=== PATIENT | male | born 1980 | race Caucasian/White ===

== ENCOUNTER 2018-04-23 16:02 | Inpatient (IN) | payer OTHER, SELFPAY ==
[2018-04-23] VITALS (25 sets, daily range): BP systolic 171–248; BP diastolic 77–156; PULSE 79–100; RESP 13–21; TEMP 36.7–37.2; O2SAT 93–100; BMI 42.0; BMI 42.4
--- NOTE | 2018-04-23 16:28 | ED.VISSUMM ---
- ER Visit Summary Date of Service: 04/23/18 Chief Complaint: Acute on chronic hypertension History of Present Illness: The patient is a 38 M with hypertension and preglaucoma. Patient took himself off his blood pressure medication months ago. He was on lisinopril. He has had recent intermittent headaches. Due to recent visual changes in both eyes he was seen today by Dr. Zhou Minor of ophthalmology. Dr. Minor diagnosed him with a hypertensive retinopathy and extremely elevated blood pressure in his office and sent him in the ER for further evaluation for hypertensive emergency. Currently patient only has a mild headache. He denies any chest pain or shortness of breath. Physical Examination: Initial blood pressure 248/147 otherwise vital signs. H EENT exam bilateral dilated pupils from recent ophthalmologic exam. Funduscopic exam per ophthalmology is consistent with hypertensive retinopathy. No facial droop. Neck nontender. Lungs clear to auscultation. Heart regular rhythm no murmur. Abdomen soft and nontender. Moving all 4 extremities. Neurovascularly intact. No edema. Back normal. Neurologic exam awake with no focal motor deficits. Test Results: CBC normal. BMP normal with normal creatinine of 1.1. Troponin is slightly elevated 0.172. EKG sinus rhythm rate of 79 with no acute signs of AR or ischemia. Chest x-ray normal cardiac silhouette and mediastinum. CAT scan of the brain showed no acute intracranial bleed. Emergency Department Course and Treatment: Patient will be started on IV labetalol. Treatment Plan: Patient was started on nicardipine drip and admitted to PCU. I have already spoken to the hospitalist. Disposition: Admission for hypertensive emergency Impression: Acute hypertensive emergency Hypertensive retinopathy This note was generated with [employer] dictation software. It may contain incorrect words, spelling, and punctuation that were not noted in review of the chart prior to signing ED Disposition - Plan for ED Patient: Chief Complaint: Hypertension Referrals: Zhou Minor MD [STAFF PHYSICIAN] -
--- NOTE | 2018-04-23 16:31 | ED.DCSUM_ITS ---
- ER Visit Summary Date of Service: 04/23/18 Chief Complaint: Acute on chronic hypertension History of Present Illness: The patient is a 38 M with hypertension and preglaucoma. Patient took himself off his blood pressure medication months ago. He was on lisinopril. He has had recent intermittent headaches. Due to recent visual changes in both eyes he was seen today by Dr. Zhou Minor of ophthalmology. Dr. Minor diagnosed him with a hypertensive retinopathy and extremely elevated blood pressure in his office and sent him in the ER for further evaluation for hypertensive emergency. Currently patient only has a mild headache. He denies any chest pain or shortness of breath. Physical Examination: Initial blood pressure 248/147 otherwise vital signs. H EENT exam bilateral dilated pupils from recent ophthalmologic exam. Funduscopic exam per ophthalmology is consistent with hypertensive retinopathy. No facial droop. Neck nontender. Lungs clear to auscultation. Heart regular rhythm no murmur. Abdomen soft and nontender. Moving all 4 extremities. Neurovascularly intact. No edema. Back normal. Neurologic exam awake with no focal motor deficits. Test Results: CBC normal. BMP normal with normal creatinine of 1.1. Troponin is slightly elevated 0.172. EKG sinus rhythm rate of 79 with no acute signs of OR or ischemia. Chest x-ray normal cardiac silhouette and mediastinum. CAT scan of the brain showed no acute intracranial bleed. Emergency Department Course and Treatment: Patient will be started on IV labetalol. Treatment Plan: Patient was started on nicardipine drip and admitted to PCU. I have already spoken to the hospitalist. Disposition: Admission for hypertensive emergency Impression: Acute hypertensive emergency Hypertensive retinopathy This note was generated with [employer] dictation software. It may contain incorrect words, spelling, and punctuation that were not noted in review of the chart prior to signing ED Disposition - Plan for ED Patient: Chief Complaint: Hypertension Referrals: Zhou Minor MD [STAFF PHYSICIAN] -
[2018-04-23 16:47] LABS: Absolute Lymphocyte Count 2.06 X10^3/ul (0.83-4.51); Absolute Neutrophil Count 4.8 X10^3/uL (2.0-7.7); Basophil# 0.01 X10^3/uL; Basophil% 0.1 % (0-1); Eosinophil# 0.08 X10^3/uL; Eosinophils% 1.1 % (0-5); Hematocrit 45.4 % (40-54); Hemoglobin 15.4 g/dl (13.0-16.5); Lymphocyte # 2.06 X10^3/ul (4.0); Lymphocyte % 27.1 % (19-41); Mean Corp Hgb Conc 33.9 g/gl (32-36); Mean Corpuscular Hgb 29.3 pg (27.0-32.0); Mean Corpuscular Volume 86.3 fL (80-94); Mean Platelet Vol. 9.5 fl (6.2-12.0); Monocyte# 0.61 X10^3/uL; Neutrophil # 4.82 X10^3/uL (2.7-7.7); Neutrophil % 63.6 % (47-70); POSITIVE COUNT NO; POSITIVE DIFFERENTIAL NO; POSITIVE MORPHOLOGY NO; Platelet Count 268 K/mm3 (150-450); RBC Distribution Width CV 12.7 % (11.6-14.6); RBC Distribution Width SD 40.3 fl (35.1-43.9); Red Blood Count 5.26 M/mm3 (4.6-6.2); White Blood Count 7.6 K/mm3 (4.4-11.0)
[2018-04-23 17:04] LABS: Anion Gap 8 (5-15); BUN 20 mg/dL (7-18); BUN/Creat Ratio 18.2 RATIO (10-20); Calcium,Total 9.1 mg/dL (8.5-10.1); Chloride 107 mmol/L (98-107); EST Glomerular Filtration Rate 80 mL/min (>60); Est Glom Filt Rate - Afr Amer 97 mL/min (>60); Estimated Creatinine Clearance 112.88 ml/min; Glucose 89 mg/dL (74-106); Potassium 3.7 mmol/L (3.5-5.1); Sodium Level 140 mmol/L (136-145)
--- NOTE | 2018-04-23 17:16 | PCM.HP.STD ---
<Sujey Espinoza - Last Filed: 04/23/18 17:52> Problem List (1) Hypertension Status: Chronic (2) Hypertensive emergency Status: Acute (3) Hypertensive retinopathy Status: Chronic History of Present Illness Date of Admission: 04/23/18 Chief Complaint: Elevated blood pressure, blurred vision The patient is a 38 year old M who presents to the emergency room with elevated blood pressure and blurred vision. Patient states he has had intermittent headaches for a few weeks. The last few days he has noticed his vision has been blurry bilaterally. He visited ophthalmology today who diagnosed him with hypertensive retinopathy and his blood pressure was noted to be significantly elevated during appointment. He was referred to ER. Patient states he was placed on lisinopril in his early 30s. He states he took himself off of lisinopril years ago and has not been on blood pressure regimen since. He has not had routine PCP follow-up the last few years and has not had blood pressure checked. He denies chest pain, shortness of breath, lower extremity swelling. He denies loss of vision. Denies syncope/near syncope. He denies other chronic medical history. Past Medical History Past Medical History (Chronic Problems): Chronic Problems Hypertension (Chronic) Hypertensive retinopathy (Chronic) Allergies Penicillins [PCN] Adverse Reaction (Verified 04/23/18 16:04) Abd cramps/diarrhea Home Medications: Ambulatory Orders Medication Instructions Recorded Aspirin/Acetaminophen/Caffeine 2 tablet PO PRN PRN 04/23/18 [Excedrin Migraine Caplet] Surgical History: - - Right knee surgery ?2 Psychiatric History: No pertinent psych hx Lives: Spouse/ Significant Other Smoking Status: Former smoker Alcohol: None Drugs: None - *Family History Maternal History Items: No pertinent history Paternal History Items: No pertinent history Review of Systems Constitutional: Denies: Chills, Fever, Weight Change Eyes: Reports: Blurred vision HEENT: Denies: Head Aches, Sinus Congestion, Sinus Drainage Cardiovascular: Denies: Chest Pain, Chest Tightness, Edema, Light Headedness, Palpitations, Syncope Respiratory: Denies: Cough, Shortness of breath at rest, Sputum production Gastrointestinal: Denies: Abdominal Pain, Nausea, Vomiting Genitourinary: Denies: Dysuria Musculoskeletal: Denies: Joint Pain, Joint Tenderness Skin: Denies: Rash, Wounds Neurological: Reports: Headaches. Denies: Focal weakness, Numbness, Tingling Hematologic/ Lymphatic: Denies: Easy Bruising, Easy Bleeding VTE Information - Inpt Only VTE Present on Admission: No VTE Mechan Device Prophylaxis: None VTE Pharm Prophylaxis ordered?: Yes Patient Problems: Active and Suspected Problems Hypertensive emergency (Acute) - Physical Exam General: Alert, Oriented x3, Cooperative, No apparent distress HEENT: Atraumatic, PERRLA, EOMI, Normocephalic Neck: Supple, No JVD, Negative Carotid Bruits Lungs: Clear to auscultation, Normal air movement Cardiovascular: Regular rate, Regular Rhythm, Normal S1, Normal S2, No murmurs Abdomen: Bowel Sounds Present, Soft, Non Tender, Non-Distended Extremities: No clubbing, No cyanosis, No edema, Capillary Refill Less than 3 Seconds Skin: No rashes, No breakdown Musculoskeletal: No Tenderness to Palpation of Joints or Extremities Neurological: Cranial nerves II-XII grossly intact, Neuro grossly intact Psych/Mental Status: Normal Affect, Appropriate Vital Signs Temp Pulse Resp BP Pulse Ox 98.9 F 79 13 222/128 H 100 04/23/18 16:02 04/23/18 17:03 04/23/18 17:03 04/23/18 17:03 04/23/18 17:03 Oxygen Flow Rate (L/min) 2 Oxygen Delivery Method Nasal Cannula Weight: 345 lb Body Mass Index (BMI) 42.0 Laboratory Tests Past 24 Hrs 04/23/18 04/23/18 16:39 16:39 WBC 7.6 RBC 5.26 Hgb 15.4 Hct 45.4 MCV 86.3 MCH 29.3 MCHC 33.9 RDW 12.7 RDW Differential 40.3 Plt Count 268 MPV 9.5 Immature Gran % (Auto) 0.100 Neut % (Auto) 63.6 Lymph % (Auto) 27.1 [place] % (Auto) 8.0 Eos % (Auto) 1.1 Baso % (Auto) 0.1 Absolute Neuts (auto) 4.8 Absolute Lymphs (auto) 2.06 Total Counted Not Reportable Sodium 140 Potassium 3.7 Chloride 107 Carbon Dioxide 25.0 Anion Gap 8 BUN 20 H Creatinine 1.10 Estim Creat Clear Calc 112.88 Est GFR (MDRD) Af Amer 97 Est GFR (MDRD) Non-Af 80 BUN/Creatinine Ratio 18.2 Glucose 89 Calcium 9.1 Troponin I 0.172 H Assessment/Plan All Active Problems Hypertensive emergency (Acute) 1. Hypertensive Emergency on chronic hypertension- BP 248/147 on admission. Patient reportedly took himself off his blood pressure regimen years ago. Received labetalol 10 mg IV ?1 in ER. Previously on lisinopril for HTN. Cardizem gtt. Q2 hours BP checks. labetolol Q4H PRN for SBP >180. Brain CT pending. Obtain echo. Recommend kidney US if BP difficult to control. 2. Elevated troponin-suspect demand ischemia secondary #1. Trend enzymes. Patient denies chest pain. 3. Hypertensive retinopathy-continue outpatient follow-up with ophthalmology. 3. Obesity- Encouraged diet and lifestyle modifications. Nutrition consult. DVT prophylaxis-SCDs, ambulation. This patient was seen by MARIELENA Valdez under the supervision of Dr. Magallanes. <Sb Magallanes F - Last Filed: 04/23/18 19:33> History of Present Illness The patient is a 38 year old M [] Past Medical History Allergies Penicillins [PCN] Adverse Reaction (Verified 04/23/18 16:04) Abd cramps/diarrhea - Physical Exam Vital Signs Temp Pulse Resp BP Pulse Ox 98.9 F 79 16 228/125 H 95 04/23/18 16:02 04/23/18 18:41 04/23/18 18:41 04/23/18 18:41 04/23/18 18:41 Assessment/Plan Addendum: Dr. Magallanes I personally examined the patient and reviewed the chart. I agree with the above. 38 yo M [employer] with a h/o HTN and was on lisinopril which he stopped on his own. Went to see the lawyer probate for blurry vision and was found to be hypertensive with SBP >220 and hypertensive retinopathy and he was sent to the ER. Has headaches as well but CT was negative. General: Alert, Oriented x3, Cooperative, No apparent distress HEENT: Atraumatic, EOMI, Normocephalic Oral: Moist Mucosa Neck: Supple, No JVD Lungs: Clear to auscultation, Normal air movement, No rhonchi, No wheeze, No rales Cardiovascular: Regular rate, Regular Rhythm, Normal S1, Normal S2, No murmurs Abdomen: Soft, Non Tender, Non-Distended, No Hepato-splenomegaly Extremities: No edema, Capillary Refill Less than 3 Seconds Skin: No rashes, No breakdown Psych/Mental Status: Normal Affect, Appropriate 1. Hypertensive emergency/HTN/elevated troponin - Now with an elevated troponin and retinopathy - Will start on a nicardipine drip in the ICU - Will also start lisinopril/HCTZ in the am, Norvasc is also another adjunctive possibility as well as coreg - BMP and CBC in the am Diet: Cardiac DVT: Lovenox Code Visit Inpatient E&M: 32421 Init Hosp L3
[2018-04-24] VITALS (57 sets, daily range): BP systolic 139–187; BP diastolic 59–94; PULSE 69–94; RESP 13–23; TEMP 36.3–36.7; O2SAT 89–98
[2018-04-24] MEDS: Ondansetron 4 MG/2 ML Vial IV (03:42)
[2018-04-24] MEDS: 0.9% NaCl Peripheral Flush Adult/Peds IV (03:42)
[2018-04-24] MEDS: Acetaminophen 500 MG Tablet 1000 MG PO ×2 (03:51→12:25)
[2018-04-24 04:04] LABS: Absolute Lymphocyte Count 2.19 X10^3/ul (0.83-4.51); Absolute Neutrophil Count 6.6 X10^3/uL (2.0-7.7); Basophil# 0.01 X10^3/uL; Basophil% 0.1 % (0-1); Eosinophil# 0.04 X10^3/uL; Eosinophils% 0.4 % (0-5); Hematocrit 43.2 % (40-54); Lymphocyte # 2.19 X10^3/ul (4.0); Lymphocyte % 22.7 % (19-41); Mean Corp Hgb Conc 34.7 g/gl (32-36); Mean Corpuscular Hgb 29.6 pg (27.0-32.0); Mean Corpuscular Volume 85.4 fL (80-94); Mean Platelet Vol. 9.3 fl (6.2-12.0); Monocyte# 0.78 X10^3/uL; Monocyte% 8.1 % (0-10); Neutrophil # 6.61 X10^3/uL (2.7-7.7); Neutrophil % 68.5 % (47-70); Platelet Count 335 K/mm3 (150-450); RBC Distribution Width CV 12.7 % (11.6-14.6); RBC Distribution Width SD 38.8 fl (35.1-43.9); Red Blood Count 5.06 M/mm3 (4.6-6.2); White Blood Count 9.7 K/mm3 (4.4-11.0)
[2018-04-24 04:12] LABS: Anion Gap 11 (5-15); BUN 22 mg/dL (7-18); BUN/Creat Ratio 21.4 RATIO (10-20); Calcium,Total 8.9 mg/dL (8.5-10.1); Chloride 104 mmol/L (98-107); Creatinine, Serum 1.03 mg/dL (0.70-1.30); EST Glomerular Filtration Rate 86 mL/min (>60); Est Glom Filt Rate - Afr Amer 105 mL/min (>60); Estimated Creatinine Clearance 120.56 ml/min; Glucose 138 mg/dL (74-106); Potassium 3.5 mmol/L (3.5-5.1); Sodium Level 140 mmol/L (136-145)
[2018-04-24 04:29] LABS: POSITIVE COUNT NO; POSITIVE DIFFERENTIAL NO; POSITIVE MORPHOLOGY NO
[2018-04-24] MEDS: Ibuprofen 600 MG Tablet PO (05:52)
[2018-04-24] MEDS: Ketorolac 30 MG/ML Syringe IV (08:29)
--- NOTE | 2018-04-24 09:08 | PCM.PN.HOSP ---
Patient Problems: Active and Suspected Problems Hypertensive emergency (Acute) Subjective: Patient admitted yesterday for hypertensive emergency. He had blurry vision and yesterday diagnosed hypertensive retinopathy by gas pit worker yesterday and was sent to ER. Patient is diagnosed with hypotension and early 30s but not compliant with his antihypertensive medications. He also complained of temporal headache for last 4-5 days. I think he has obstructive sleep apnea and his complain of loud snoring. Currently he is on IV nicardipine and blood pressure is 177/75. Vitals/I&O's: Vital Signs Temp Pulse Resp BP Pulse Ox 98.1 F 92 19 H 180/78 H 97 04/24/18 00:00 04/24/18 09:00 04/24/18 09:00 04/24/18 09:00 04/24/18 09:00 Oxygen Delivery Method Room Air Weight: 348 lb 1.758 oz Body Mass Index (BMI) 42.4 Intake and Output for Last 24 Hours 04/22/18 04/23/18 04/24/18 23:59 23:59 23:59 Intake Total 650 / 650 1325 / 1325 Output Total 1125 / 1125 300 / 300 Balance -475 / -475 1025 / 1025 General: Alert, Oriented x3, Cooperative HEENT: Atraumatic, PERRLA, EOMI, Normocephalic Neck: Supple, No JVD, Negative Carotid Bruits Lungs: Clear to auscultation, No rhonchi, No wheeze, No rales, Diminished Cardiovascular: Regular rate, Regular Rhythm, Normal S1, Normal S2, No murmurs Abdomen: Bowel Sounds Present, Soft, Non Tender Extremities: Capillary Refill Less than 3 Seconds, Edema Skin: No rashes, No breakdown Musculoskeletal: No Tenderness to Palpation of Joints or Extremities Neurological: Cranial nerves II-XII grossly intact Psych/Mental Status: Normal Affect, Appropriate Laboratory Results 04/23/18 19:35: Troponin I 0.173 H 04/23/18 22:20: Troponin I 0.165 H 04/24/18 03:50: WBC 9.7, RBC 5.06, Hgb 15.0, Hct 43.2, MCV 85.4, MCH 29.6, MCHC 34.7, RDW 12.7, RDW Differential 38.8, Plt Count 335, MPV 9.3, Immature Gran % (Auto) 0.200, Neut % (Auto) 68.5, Lymph % (Auto) 22.7, [place] % (Auto) 8.1, Eos % (Auto) 0.4, Baso % (Auto) 0.1, Absolute Neuts (auto) 6.6, Absolute Lymphs (auto) 2.19, Total Counted Not Reportable 04/24/18 03:50: Sodium 140, Potassium 3.5, Chloride 104, Carbon Dioxide 25.0, Anion Gap 11, BUN 22 H, Creatinine 1.03, Estim Creat Clear Calc 120.56, Est GFR (MDRD) Af Amer 105, Est GFR (MDRD) Non-Af 86, BUN/Creatinine Ratio 21.4 H, Glucose 138 H, Calcium 8.9 Current Medications Acetaminophen (Tylenol) 1,000 mg PO Q8H PRN PRN PRN Reason: PAIN Last Admin: 04/24/18 03:51 Dose: 1,000 mg Enoxaparin Sodium (Lovenox) 40 mg SC DAILY@1000 [facility] Hydrochlorothiazide (Hctz) 25 mg PO DAILY [facility] Sodium Chloride () 250 mls @ 15 mls/hr IV .[id number] PRN PRN Reason: SALINE FLUSH Nicardipine HCl 25 mg/ Sodium (Chloride) 250 mls @ 50 mls/hr IV .Q5H [facility]; 5 MG/HR PRN Reason: Protocol Last Admin: 04/24/18 08:54 Dose: 50 mls/hr Ketorolac Tromethamine (Toradol) 15 mg IV Q6H PRN PRN PRN Reason: HEADACHE Stop: 04/29/18 14:01 Lisinopril (Zestril) 20 mg PO DAILY [facility] Magnesium Hydroxide (Milk Of Magnesia) 30 ml PO DAILY PRN PRN Reason: Constipation Ondansetron HCl (Zofran) 4 mg IV Q8H PRN PRN PRN Reason: NAUSEA Last Admin: 04/24/18 03:42 Dose: 4 mg Sodium Chloride () 5 - 30 ml IV UD PRN PRN Reason: SALINE FLUSH Last Admin: 04/24/18 03:42 Dose: 10 ml Medical Necessity - Tobacco Use Smoking Status: Former smoker Tobacco Use: Cigarettes Assessment/Plan All Active Problems Hypertensive emergency (Acute) This 38-year-old gentleman was admitted in ICU for hypertensive emergency. He had blurry vision and yesterday diagnosed hypertensive retinopathy by gas pit worker yesterday and was sent to ER. Patient is diagnosed with hypotension and early 30s but not compliant with his antihypertensive medications. He also complained of temporal headache for last 4-5 days. I think he has obstructive sleep apnea and his complain of loud snoring. Currently he is on IV nicardipine and blood pressure is 177/75. 1. Hypertensive Emergency on chronic hypertension- BP 248/147 on admission. Received labetalol 10 mg IV ?1 in ER. Previously on lisinopril for HTN. labetolol Q4H PRN for SBP >180. Titrate up nicardipine drip to keep blood pressure systolic 150s for next hours. On HCTZ, lisinopril and metoprolol Brain CT pending. Obtain echo. Recommend kidney US if BP difficult to control. 2. Elevated troponin-suspect demand ischemia secondary #1. Troponins are elevated 0.173, 0.165. We will do 1 more troponin. 3. Hypertensive retinopathy-continue outpatient follow-up with ophthalmology. 3. Obesity- Encouraged diet and lifestyle modifications. Nutrition consult. DVT prophylaxis-SCDs, Lovenox Code Visit Inpatient E&M: 14687 Subs Hosp L3
[2018-04-24] MEDS: Lisinopril 20 MG Tablet PO ×2 (09:09→21:07)
[2018-04-24] MEDS: hydroCHLOROthiazide 25 MG Tablet PO (09:09)
[2018-04-24] MEDS: Enoxaparin 40 MG/0.4 ML Syringe SC (09:10)
[2018-04-24 10:15] LABS: BNP,B-Type NATRIURETIC PEPTIDE 53.4 pg/mL (0-100)
[2018-04-24] MEDS: Metoprolol Tartrate 25 MG Tablet PO ×2 (10:55→21:06)
--- NOTE | 2018-04-24 10:56 | CASEMGMT ---
See assessment. W spoke w/pt and in room. Pt is independent, lives home w/ and two daughters, ages 3 and 6. No homegoing needs anticipated. SW gave pt a list of PCP's as pt does not have a PCP at present. Pt plans to follow up w/getting in to see a PCP. No other needs are anticipated. JOON Caraballo, DRY END TESTER
[2018-04-24] MEDS: hydrALAZINE 50 MG Tablet PO ×2 (14:16→21:06)
[2018-04-24] MEDS: Ketorolac 15 MG/ML Vial IV (14:16)
[2018-04-24] MEDS: Atorvastatin Calcium 40 MG Tablet PO (21:06)
[2018-04-25] VITALS (60 sets, daily range): BP systolic 139–197; BP diastolic 68–114; PULSE 59–86; RESP 11–20; TEMP 36.8–37.1; O2SAT 90–97
--- NOTE | 2018-04-25 01:12 | CPS ---
pt does not wear cpap at home. Pt will follow up wit a request for a sleep study from PCP.
[2018-04-25 04:33] LABS: Absolute Neutrophil Count 4.6 X10^3/uL (2.0-7.7); Basophil# 0.01 X10^3/uL; Basophil% 0.1 % (0-1); Eosinophil# 0.09 X10^3/uL; Eosinophils% 1.1 % (0-5); Hematocrit 43.8 % (40-54); Hemoglobin 14.8 g/dl (13.0-16.5); Lymphocyte % 26.8 % (19-41); Mean Corp Hgb Conc 33.8 g/gl (32-36); Mean Corpuscular Hgb 29.5 pg (27.0-32.0); Mean Corpuscular Volume 87.4 fL (80-94); Mean Platelet Vol. 9.5 fl (6.2-12.0); Monocyte% 12.7 % (0-10); Neutrophil # 4.63 X10^3/uL (2.7-7.7); Platelet Count 296 K/mm3 (150-450); RBC Distribution Width CV 13.1 % (11.6-14.6); RBC Distribution Width SD 41.8 fl (35.1-43.9); Red Blood Count 5.01 M/mm3 (4.6-6.2); White Blood Count 7.9 K/mm3 (4.4-11.0)
[2018-04-25 04:34] LABS: Anion Gap 9 (5-15); BUN 17 mg/dL (7-18); BUN/Creat Ratio 18.5 RATIO (10-20); Calcium,Total 8.7 mg/dL (8.5-10.1); Chloride 106 mmol/L (98-107); Cholesterol 274 mg/dL (200); Creatinine, Serum 0.92 mg/dL (0.70-1.30); EST Glomerular Filtration Rate 98 mL/min (>60); Est Glom Filt Rate - Afr Amer 119 mL/min (>60); Estimated Creatinine Clearance 134.97 ml/min; Glucose 99 mg/dL (74-106); High Density Lipoprotein 40 mg/dL; POSITIVE COUNT NO; POSITIVE DIFFERENTIAL NO; POSITIVE MORPHOLOGY NO; Potassium 4.2 mmol/L (3.5-5.1); Sodium Level 141 mmol/L (136-145); Triglycerides 144 mg/dL; Very Low Density Lipoprotein 29 mg/dL (5-40)
[2018-04-25] MEDS: hydrALAZINE 50 MG Tablet PO ×3 (05:34→21:00)
[2018-04-25] MEDS: Ketorolac 15 MG/ML Vial IV (07:50)
[2018-04-25] MEDS: Lisinopril 20 MG Tablet PO ×2 (07:51→09:29)
[2018-04-25] MEDS: Metoprolol Tartrate 25 MG Tablet PO (07:51)
[2018-04-25] MEDS: hydroCHLOROthiazide 25 MG Tablet PO (07:52)
--- NOTE | 2018-04-25 08:13 | EKG12_ITS ---
Test Reason : HTN Blood Pressure : / mmHG Vent. Rate : 069 BPM Atrial Rate : 069 BPM P-R Int : 142 ms QRS Dur : 104 ms QT Int : 438 ms P-R-T Axes : 037 006 121 degrees QTc Int : 469 ms Normal sinus rhythm T wave abnormality, consider lateral ischemia Prolonged QT Confirmed by NANCY PRADO, SHAGGY ([id number]), manuscript editor MIGUEL ANGEL JAMA ([id number]) on 05/01/2018 2:10:23 PM Referred By: VERONICA Confirmed By:SHAGGY CRUZ MD
--- NOTE | 2018-04-25 09:04 | PCM.PN.HOSP ---
Patient Problems: Active and Suspected Problems Hypertensive emergency (Acute) Subjective: Blood pressure was 151-160 around 3:00 in the morning and after that nicardipine drip was tapered off. After 2-3 hours, BP went up 197/100 at 7:22; morning dose of lisinopril, HCTZ and metoprolol was given but is still 185/97 at 7:45 AM. Nicardipine drip was started again. Discussed with industrial hygiene engineer Dr. Virgen and went to his medications, EKG and troponins. He denies chest pain, shortness of breath or tachypnea. He also has headache for which Toradol was given. Vitals/I&O's: Vital Signs Temp Pulse Resp BP Pulse Ox 98.2 F 70 15 173/110 H 94 04/25/18 00:00 04/25/18 08:30 04/25/18 08:30 04/25/18 08:30 04/25/18 08:30 Oxygen Delivery Method Room Air Weight: 346 lb 5.539 oz Body Mass Index (BMI) 42.4 Intake and Output for Last 24 Hours 04/23/18 04/24/18 04/25/18 23:59 23:59 23:59 Intake Total 650 / 650 4064 / 4064 335 / 335 Output Total 1125 / 1125 3050 / 3050 700 / 700 Balance -475 / -475 1014 / 1014 -365 / -365 General: Alert, Oriented x3, Cooperative HEENT: Atraumatic, PERRLA, EOMI, Normocephalic Neck: Supple, No JVD, Negative Carotid Bruits Lungs: Clear to auscultation, Normal air movement, No rhonchi, No wheeze, No rales Cardiovascular: Regular rate, Regular Rhythm, Normal S1, Normal S2, No murmurs, - - Sustained apical impulse Abdomen: Bowel Sounds Present, Soft, Non Tender, Non-Distended Extremities: No edema, Capillary Refill Less than 3 Seconds Skin: No rashes, No breakdown Musculoskeletal: No Tenderness to Palpation of Joints or Extremities Neurological: Cranial nerves II-XII grossly intact Psych/Mental Status: Normal Affect, Appropriate Laboratory Results 04/24/18 03:50: Troponin I 0.231 H 04/24/18 03:50: B-Natriuretic Peptide 53.4 04/25/18 04:10: WBC 7.9, RBC 5.01, Hgb 14.8, Hct 43.8, MCV 87.4, MCH 29.5, MCHC 33.8, RDW 13.1, RDW Differential 41.8, Plt Count 296, MPV 9.5, Immature Gran % (Auto) 0.300, Neut % (Auto) 59.0, Lymph % (Auto) 26.8, [place] % (Auto) 12.7 H, Eos % (Auto) 1.1, Baso % (Auto) 0.1, Absolute Neuts (auto) 4.6, Absolute Lymphs (auto) 2.10, Total Counted Not Reportable 04/25/18 04:10: Sodium 141, Potassium 4.2, Chloride 106, Carbon Dioxide 26.0, Anion Gap 9, BUN 17, Creatinine 0.92, Estim Creat Clear Calc 134.97, Est GFR (MDRD) Af Amer 119, Est GFR (MDRD) Non-Af 98, BUN/Creatinine Ratio 18.5, Glucose 99, Calcium 8.7, Triglycerides 144, Cholesterol 274 H, LDL Cholesterol 205 H, VLDL Cholesterol 29, HDL Cholesterol 40 Current Medications Acetaminophen (Tylenol) 1,000 mg PO Q8H PRN PRN PRN Reason: PAIN Last Admin: 04/24/18 12:25 Dose: 1,000 mg Atorvastatin Calcium (Lipitor) 80 mg PO QHS [facility] Carvedilol (Coreg) 12.5 mg PO BID [facility] Enoxaparin Sodium (Lovenox) 40 mg SC DAILY@1000 [facility] Last Admin: 04/24/18 09:10 Dose: 40 mg Hydralazine HCl (Apresoline) 50 mg PO TID [facility] Last Admin: 04/25/18 05:34 Dose: 50 mg Hydrochlorothiazide (Hctz) 25 mg PO DAILY [facility] Last Admin: 04/25/18 07:52 Dose: 25 mg Sodium Chloride () 250 mls @ 15 mls/hr IV .[id number] PRN PRN Reason: SALINE FLUSH Nicardipine HCl 25 mg/ Sodium (Chloride) 250 mls @ 100 mls/hr IV .Q2H30M [facility]; 10 MG/HR PRN Reason: Protocol Last Admin: 04/25/18 05:33 Dose: Not Given Ketorolac Tromethamine (Toradol) 15 mg IV Q6H PRN PRN PRN Reason: HEADACHE Stop: 04/29/18 14:01 Last Admin: 04/25/18 07:50 Dose: 15 mg Lisinopril (Zestril) 20 mg PO X1 ONE Stop: 04/25/18 09:00 Losartan Potassium (Cozaar) 100 mg PO DAILY [facility] Magnesium Hydroxide (Milk Of Magnesia) 30 ml PO DAILY PRN PRN Reason: Constipation Ondansetron HCl (Zofran) 4 mg IV Q6H PRN PRN PRN Reason: NAUSEA Sodium Chloride () 5 - 30 ml IV UD PRN PRN Reason: SALINE FLUSH Last Admin: 04/24/18 03:42 Dose: 10 ml Medical Necessity - Tobacco Use Smoking Status: Former smoker Tobacco Use: Cigarettes Assessment/Plan All Active Problems Hypertensive emergency (Acute) This 38-year-old gentleman was admitted in ICU for hypertensive emergency. He had blurry vision and yesterday diagnosed hypertensive retinopathy by certified fraud examiner yesterday and was sent to ER. Patient is diagnosed with hypotension and early 30s but not compliant with his antihypertensive medications. He also complained of temporal headache for last 4-5 days. I think he has obstructive sleep apnea and his complain of loud snoring. Currently he is on IV nicardipine and blood pressure is 177/75. 1. Hypertensive Emergency on chronic hypertension- BP 248/147 on admission. Received labetalol 10 mg IV ?1 in ER. Previously on lisinopril for HTN. labetolol Q4H PRN for SBP >180. Titrate up nicardipine drip to keep blood pressure systolic 150s for next hours. Blood pressure was 151-160 around 3:00 a.m. on 04/25 and after that nicardipine drip was tapered off. After 2-3 hours, BP went up 197/100 at 7:22; morning dose of lisinopril, HCTZ and metoprolol was given but is still 185/97 at 7:45 AM. Nicardipine drip was started again. Discussed with industrial hygiene engineer Dr. Virgen and went to his medications, EKG and troponins. He advised change lisinopril to Cozaar 100 mg, metoprolol to Coreg 12.5 mg twice daily and continue HCTZ and nicardipine drip. Once blood pressure is controlled around 150s, can taper off nicardipine drip and start amlodipine 10 mg. Repeat EKG shows normal sinus rhythm with T inversion in lead I, aVL, V5, V6 suggestive of LVH with repolarization abnormality. Dr. Virgen also suggested 24 hours urinary metanephrine and catecholamine test. Serum TSH, cortisol and renal aldosterone activity ordered for tomorrow morning. Renal artery ultrasound also ordered to look for secondary hypertension. 2. Elevated troponin-suspect demand ischemia secondary #1. Troponins are elevated 0.173, 0.165 and 0.231 suggestive of increased left ventricular distress from hypertensive emergency. Discussed with Dr. Virgen notes repeating troponin further. 3. Hypertensive retinopathy-continue outpatient follow-up with ophthalmology. 4. Obesity- Encouraged diet and lifestyle modifications. Nutrition consult. DVT prophylaxis-SCDs, Lovenox Code Visit Inpatient E&M: 28223 Subs Hosp L3
[2018-04-25] MEDS: Enoxaparin 40 MG/0.4 ML Syringe SC (09:32)
[2018-04-25] MEDS: Acetaminophen 500 MG Tablet 1000 MG PO ×2 (09:42→23:54)
--- NOTE | 2018-04-25 14:39 | PCM.CON.CC ---
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 Patient reportedly had been having intermittent headaches for weeks that were described as sharp stabbing pains of the [place]eter[place] that radiated to the occiput. No photophobia or phonophobia was reported. No nausea or vomiting was noted. Patient did report improvement following Excedrin Migraine. On arrival to the emergency room, patient was noted to have a blood pressure of 248/147 without focal neurologic deficits. Workup otherwise was unremarkable. Patient was transferred to the intensive care unit and placed on a nicardipine drip. Patient has been initiated on multiple p.o. medications, but has not been able to come off of nicardipine drip, so a intensive care consult was obtained. Patient has taken hydrochlorothiazide, lisinopril and metoprolol. Echocardiogram was significant for an EF of 75% without reported LVH. No significant pulmonary hypertension was reported. Patient had indeterminate troponins, but no intervention. Patient reports he was on lisinopril in the past, but this was discontinued by himself. Patient admits that he does not follow up routinely with a primary care physician and estimates last time he was seen was approximately 5 years ago for a preemployment evaluation. Patient does admit that he is tired through the day, but states he works a lot of hours. Patient does have witnessed apneas and snoring at night. Patient feels tired to the point that he can fall asleep while watching TV or reading the paper. Patient has been followed for some time for increased intraocular pressure, but is never been placed on drops for evaluation. Patient does report that he had an uncle that in his 30s of unknown causes. Patient also had a grandfather that had a massive [place] that had issues with increased blood pressure. Past Medical History Past Medical History (Chronic Problems): Chronic Problems Hypertension (Chronic) Hypertensive retinopathy (Chronic) Allergies Penicillins [PCN] Adverse Reaction (Verified 04/23/18 16:04) Abd cramps/diarrhea Home Medications: Ambulatory Orders Medication Instructions Recorded Aspirin/Acetaminophen/Caffeine 2 tablet PO PRN PRN 04/23/18 [Excedrin Migraine Caplet] Surgical History: - - Right knee surgery ?2 Psychiatric History: No pertinent psych hx Lives: Spouse/ Significant Other Smoking Status: Former smoker Tobacco Use: Cigarettes Alcohol: None Drugs: None - *Family History Maternal History Items: No pertinent history Paternal History Items: No pertinent history Review of Systems Comment: See HPI, otherwise negative ?10 systems. Patient Problems: Active and Suspected Problems Hypertensive emergency (Acute) Objective: All imaging was personally reviewed. Echocardiogram was described in the HPI. CT scan of the head did show a possible empty sella. Renal Dopplers have been completed, but formal results are not available. - Physical Exam General: Alert, Oriented x3, Cooperative, No apparent distress, Well developed, Well nourished, - - Morbidly obese. Speaking in full sentences. HEENT: Atraumatic, PERRLA, EOMI, Normocephalic, - - No scleral icterus or injection noted. Oral: Moist Mucosa, No Gingival or Mucosal Lesions/ Ulcerations Neck: Supple, No JVD, No Nodes, Trachea Midline Lungs: Clear to auscultation, Normal air movement, No rhonchi, No wheeze, No rales Cardiovascular: Regular rate, Regular Rhythm, Normal S1, Normal S2, No murmurs, No rub noted, No Gallop Abdomen: Bowel Sounds Present, Soft, Non Tender, Non-Distended, No Hepato-splenomegaly, Obese Extremities: No clubbing, No cyanosis, Edema - Trace lower extremity Skin: No rashes, No breakdown Musculoskeletal: No Tenderness to Palpation of Joints or Extremities Lymphatic: No Cervical, Supraclavicular, or Inguinal Adenopathy Neurological: Cranial nerves II-XII grossly intact, Neuro grossly intact, Motor Exam 5/5 strength throughout Psych/Mental Status: Alert and oriented to time, place, person, mood and affect Vital Signs Temp Pulse Resp BP Pulse Ox 37.1 C 75 18 167/96 H 97 04/25/18 12:38 04/25/18 14:00 04/25/18 14:00 04/25/18 14:00 04/25/18 14:00 Oxygen Delivery Method Room Air Weight: 157.1 kg Body Mass Index (BMI) 42.4 Intake and Output for Last 24 Hours 04/23/18 04/24/18 04/25/18 23:59 23:59 23:59 Intake Total 650 / 650 4064 / 4064 1054 / 1054 Output Total 1125 / 1125 3050 / 3050 1700 / 1700 Balance -475 / -475 1014 / 1014 -646 / -646 Laboratory Tests Past 24 Hrs 04/25/18 04/25/18 04:10 04:10 WBC 7.9 RBC 5.01 Hgb 14.8 Hct 43.8 MCV 87.4 MCH 29.5 MCHC 33.8 RDW 13.1 RDW Differential 41.8 Plt Count 296 MPV 9.5 Immature Gran % (Auto) 0.300 Neut % (Auto) 59.0 Lymph % (Auto) 26.8 [place] % (Auto) 12.7 H Eos % (Auto) 1.1 Baso % (Auto) 0.1 Absolute Neuts (auto) 4.6 Absolute Lymphs (auto) 2.10 Total Counted Not Reportable Sodium 141 Potassium 4.2 Chloride 106 Carbon Dioxide 26.0 Anion Gap 9 BUN 17 Creatinine 0.92 Estim Creat Clear Calc 134.97 Est GFR (MDRD) Af Amer 119 Est GFR (MDRD) Non-Af 98 BUN/Creatinine Ratio 18.5 Glucose 99 Calcium 8.7 Triglycerides 144 Cholesterol 274 H LDL Cholesterol 205 H VLDL Cholesterol 29 HDL Cholesterol 40 Clinical Impression(s) from Imaging Studies Chest X-Ray 04/23/18 16:19 IMPRESSION: No acute thoracic pathology. Electronically Signed: Alexis Nunes at 16:59 EDT Tel , Service support , Brain CT 04/23/18 17:33 IMPRESSION: Empty sella deformity is observed of uncertain clinical significance although may be associated with pseudotumor cerebri. Clinical correlation recommended. No evidence for obstructive hydrocephalus mass or acute bleed. MRI may be useful for further assessment if clinically warranted Electronically Signed: Zhou Khoury MD at 18:07 EDT , Service support , Assessment/Plan Active and Suspected Problems Hypertensive emergency (Acute) RECOMMENDATIONS: 1. Discontinue losartan, reinitiate lisinopril 2. Increase Coreg therapy 3. Labetalol IV as needed 4. Wean nicardipine as tolerated 5. Await renal artery Dopplers 6. Titrate to systolic blood pressure 170-180 7. Outpatient polysomnogram 8. Add Norvasc therapy IMPRESSIONS: 1. Hypertensive emergency secondary to hypertensive retinopathy Patient has remained on nicardipine drip intermittently since admission. We will continue with RIANA inhibitor. Transition to Coreg therapy and maximum dosages. IV labetalol for now. Wean nicardipine drip as tolerated. Patient does have renal Doppler ultrasounds pending. Patient may require outpatient secondary hypertension workup. Patient likely has a significant amount of autoregulation at this time and should not be dropped below 170-180 chronically on blood pressures systolically. Cannot exclude the need for an MRI as an outpatient for evaluation of possible hypothalamic issues, but patient does not have concomitant issues such as hypothyroidism or gonadotropin issues. 2. Morbid obesity/elevated troponin Complicates care, management, recovery and prognosis. Clinical suspicion for elevated troponin secondary to perfusion mismatch. No LVH was noted on echocardiogram. Encourage weight loss. Patient would benefit from outpatient polysomnogram. Code Visit Inpatient E&M: 89219 Init Hosp L3
--- NOTE | 2018-04-25 14:45 | CON.PCM_ITS ---
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 Patient reportedly had been having intermittent headaches for weeks that were described as sharp stabbing pains of the zoroastrianism that radiated to the occiput. No photophobia or phonophobia was reported. No nausea or vomiting was noted. Patient did report improvement following Excedrin Migraine. On arrival to the emergency room, patient was noted to have a blood pressure of 248/147 without focal neurologic deficits. Workup otherwise was unremarkable. Patient was transferred to the intensive care unit and placed on a nicardipine drip. Patient has been initiated on multiple p.o. medications, but has not been able to come off of nicardipine drip, so a intensive care consult was obtained. Patient has taken hydrochlorothiazide, lisinopril and metoprolol. Echocardiogram was significant for an EF of 75% without reported LVH. No significant pulmonary hypertension was reported. Patient had indeterminate troponins, but no intervention. Patient reports he was on lisinopril in the past, but this was discontinued by himself. Patient admits that he does not follow up routinely with a primary care physician and estimates last time he was seen was approximately 5 years ago for a preemployment evaluation. Patient does admit that he is tired through the day, but states he works a lot of hours. Patient does have witnessed apneas and snoring at night. Patient feels tired to the point that he can fall asleep while watching TV or reading the paper. Patient has been followed for some time for increased intraocular pressure, but is never been placed on drops for evaluation. Patient does report that he had an uncle that in his 30s of unknown causes. Patient also had a grandfather that had a massive [place] that had issues with increased blood pressure. Past Medical History Past Medical History (Chronic Problems): Chronic Problems Hypertension (Chronic) Hypertensive retinopathy (Chronic) Allergies Penicillins [PCN] Adverse Reaction (Verified 04/23/18 16:04) Abd cramps/diarrhea Home Medications: Ambulatory Orders Medication Instructions Recorded Aspirin/Acetaminophen/Caffeine 2 tablet PO PRN PRN 04/23/18 [Excedrin Migraine Caplet] Surgical History: - - Right knee surgery ?2 Psychiatric History: No pertinent psych hx Lives: Spouse/ Significant Other Smoking Status: Former smoker Tobacco Use: Cigarettes Alcohol: None Drugs: None - *Family History Maternal History Items: No pertinent history Paternal History Items: No pertinent history Review of Systems Comment: See HPI, otherwise negative ?10 systems. Patient Problems: Active and Suspected Problems Hypertensive emergency (Acute) Objective: All imaging was personally reviewed. Echocardiogram was described in the HPI. CT scan of the head did show a possible empty sella. Renal Dopplers have been completed, but formal results are not available. - Physical Exam General: Alert, Oriented x3, Cooperative, No apparent distress, Well developed, Well nourished, - - Morbidly obese. Speaking in full sentences. HEENT: Atraumatic, PERRLA, EOMI, Normocephalic, - - No scleral icterus or injection noted. Oral: Moist Mucosa, No Gingival or Mucosal Lesions/ Ulcerations Neck: Supple, No JVD, No Nodes, Trachea Midline Lungs: Clear to auscultation, Normal air movement, No rhonchi, No wheeze, No rales Cardiovascular: Regular rate, Regular Rhythm, Normal S1, Normal S2, No murmurs, No rub noted, No Gallop Abdomen: Bowel Sounds Present, Soft, Non Tender, Non-Distended, No Hepato- splenomegaly, Obese Extremities: No clubbing, No cyanosis, Edema - Trace lower extremity Skin: No rashes, No breakdown Musculoskeletal: No Tenderness to Palpation of Joints or Extremities Lymphatic: No Cervical, Supraclavicular, or Inguinal Adenopathy Neurological: Cranial nerves II-XII grossly intact, Neuro grossly intact, Motor Exam 5/5 strength throughout Psych/Mental Status: Alert and oriented to time, place, person, mood and affect Vital Signs Temp Pulse Resp BP Pulse Ox 37.1 C 75 18 167/96 H 97 04/25/18 12:38 04/25/18 14:00 04/25/18 14:00 04/25/18 14:00 04/25/18 14:00 Oxygen Delivery Method Room Air Weight: 157.1 kg Body Mass Index (BMI) 42.4 Intake and Output for Last 24 Hours 04/23/18 04/24/18 04/25/18 23:59 23:59 23:59 Intake Total 650 / 650 4064 / 4064 1054 / 1054 Output Total 1125 / 1125 3050 / 3050 1700 / 1700 Balance -475 / -475 1014 / 1014 -646 / -646 Laboratory Tests Past 24 Hrs 04/25/18 04/25/18 04:10 04:10 WBC 7.9 RBC 5.01 Hgb 14.8 Hct 43.8 MCV 87.4 MCH 29.5 MCHC 33.8 RDW 13.1 RDW Differential 41.8 Plt Count 296 MPV 9.5 Immature Gran % (Auto) 0.300 Neut % (Auto) 59.0 Lymph % (Auto) 26.8 [place] % (Auto) 12.7 H Eos % (Auto) 1.1 Baso % (Auto) 0.1 Absolute Neuts (auto) 4.6 Absolute Lymphs (auto) 2.10 Total Counted Not Reportable Sodium 141 Potassium 4.2 Chloride 106 Carbon Dioxide 26.0 Anion Gap 9 BUN 17 Creatinine 0.92 Estim Creat Clear Calc 134.97 Est GFR (MDRD) Af Amer 119 Est GFR (MDRD) Non-Af 98 BUN/Creatinine Ratio 18.5 Glucose 99 Calcium 8.7 Triglycerides 144 Cholesterol 274 H LDL Cholesterol 205 H VLDL Cholesterol 29 HDL Cholesterol 40 Clinical Impression(s) from Imaging Studies Chest X-Ray 04/23/18 16:19 IMPRESSION: No acute thoracic pathology. Electronically Signed: Alexis Nunes at 16:59 EDT Tel , Service support , Brain CT 04/23/18 17:33 IMPRESSION: Empty sella deformity is observed of uncertain clinical significance although may be associated with pseudotumor cerebri. Clinical correlation recommended. No evidence for obstructive hydrocephalus mass or acute bleed. MRI may be useful for further assessment if clinically warranted Electronically Signed: Zhou Khoury MD at 18:07 EDT , Service support , Assessment/Plan Active and Suspected Problems Hypertensive emergency (Acute) RECOMMENDATIONS: 1. Discontinue losartan, reinitiate lisinopril 2. Increase Coreg therapy 3. Labetalol IV as needed 4. Wean nicardipine as tolerated 5. Await renal artery Dopplers 6. Titrate to systolic blood pressure 170-180 7. Outpatient polysomnogram 8. Add Norvasc therapy IMPRESSIONS: 1. Hypertensive emergency secondary to hypertensive retinopathy Patient has remained on nicardipine drip intermittently since admission. We will continue with RIANA inhibitor. Transition to Coreg therapy and maximum dosages. IV labetalol for now. Wean nicardipine drip as tolerated. Patient does have renal Doppler ultrasounds pending. Patient may require outpatient secondary hypertension workup. Patient likely has a significant amount of autoregulation at this time and should not be dropped below 170-180 chronically on blood pressures systolically. Cannot exclude the need for an MRI as an outpatient for evaluation of possible hypothalamic issues, but patient does not have concomitant issues such as hypothyroidism or gonadotropin issues. 2. Morbid obesity/elevated troponin Complicates care, management, recovery and prognosis. Clinical suspicion for elevated troponin secondary to perfusion mismatch. No LVH was noted on echocardiogram. Encourage weight loss. Patient would benefit from outpatient polysomnogram. Code Visit Inpatient E&M: 39360 Init Hosp L3
[2018-04-25] MEDS: amLODIPine 10 MG Tablet PO (15:18)
[2018-04-25] MEDS: Atorvastatin Calcium 80 MG Tablet PO (21:01)
[2018-04-25] MEDS: Carvedilol 25 MG Tablet PO (21:02)
[2018-04-26] VITALS (23 sets, daily range): BP systolic 134–201; BP diastolic 60–120; PULSE 52–78; RESP 10–20; TEMP 36.8–37; O2SAT 92–99
[2018-04-26] MEDS: 0.9% NaCl Peripheral Flush Adult/Peds IV ×3 (03:17→19:43)
[2018-04-26] MEDS: Ketorolac 15 MG/ML Vial IV ×2 (03:17→17:57)
[2018-04-26 04:39] LABS: ALB/GLOB Ratio 1.1 RATIO (0.9-2.4); AST(SGOT) 22 U/L (15-37); Alanine Aminotransfer ALT/SGPT 44 U/L (16-61); Albumin, Serum 3.7 g/dL (3.2-5.0); Alkaline Phosphatase 84 U/L (45-117); Anion Gap 10 (5-15); BUN 21 mg/dL (7-18); BUN/Creat Ratio 17.1 RATIO (10-20); Calcium,Total 8.7 mg/dL (8.5-10.1); Chloride 104 mmol/L (98-107); Creatinine, Serum 1.23 mg/dL (0.70-1.30); EST Glomerular Filtration Rate 70 mL/min (>60); Est Glom Filt Rate - Afr Amer 85 mL/min (>60); Estimated Creatinine Clearance 100.95 ml/min; Globulin 3.4 g/dL (2.2-4.2); Glucose 100 mg/dL (74-106); Magnesium 1.9 mg/dL (1.6-2.6); Protein, Total 7.1 g/dL (6.4-8.2); Sodium Level 139 mmol/L (136-145); Thyroid Stim Hormone (TSH) 1.97 uIU/mL (0.358-3.74)
[2018-04-26] MEDS: hydrALAZINE 50 MG Tablet PO ×2 (05:02→19:43)
--- NOTE | 2018-04-26 07:28 | PCM.PN.INT ---
Subjective: Patient did well overnight. Patient denies any nausea or vomiting, but did have a headache. Patient has remained on room air. Nicardipine drip was successfully discontinued overnight. Patient did have bradycardia, but no hypotension was noted while sleeping. General: Alert, Oriented x3, Cooperative, No apparent distress, Well developed, Well nourished, - - Morbidly obese. Speaking in full sentences. HEENT: Atraumatic, PERRLA, EOMI, Normocephalic, - - No scleral icterus or injection noted. Oral: Moist Mucosa, No Gingival or Mucosal Lesions/ Ulcerations Neck: Supple, No JVD, No Nodes, Trachea Midline Lungs: Clear to auscultation, Normal air movement, No rhonchi, No wheeze, No rales, - - Symmetric expansion. No dullness to percussion. Cardiovascular: Regular rate, Regular Rhythm, Normal S1, Normal S2, No murmurs, No rub noted, No Gallop Abdomen: Bowel Sounds Present, Soft, Non Tender, Non-Distended, Obese Extremities: No clubbing, No cyanosis, Edema - Trace lower extremity Skin: No rashes, No breakdown Musculoskeletal: No Tenderness to Palpation of Joints or Extremities Lymphatic: No Cervical, Supraclavicular, or Inguinal Adenopathy Neurological: Cranial nerves II-XII grossly intact, Neuro grossly intact, Motor Exam 5/5 strength throughout, Sensory exam intact to light touch and pain, - - No focal neurologic deficits appreciated Psych/Mental Status: Alert and oriented to time, place, person, mood and affect Vital Signs Temp Pulse Resp BP Pulse Ox 36.9 C 52 L 15 151/66 H 97 04/26/18 00:00 04/26/18 06:00 04/26/18 06:00 04/26/18 06:00 04/26/18 06:00 Oxygen Delivery Method Room Air Weight: 157.5 kg Body Mass Index (BMI) 42.4 Intake and Output for Last 24 Hours 04/24/18 04/25/18 04/26/18 23:59 23:59 23:59 Intake Total 4064 / 4064 2069 / 2069 60 / 60 Output Total 3050 / 3050 3100 / 3100 450 / 450 Balance 1014 / 1014 -1031 / -1031 -390 / -390 Labs (Last 48 Hours) 04/24/18 04/24/1804/25/18 03:50 03:50 04:10 WBC 7.9 RBC 5.01 Hgb 14.8 Hct 43.8 MCV 87.4 MCH 29.5 MCHC 33.8 RDW 13.1 RDW Differential 41.8 Plt Count 296 MPV 9.5 Immature Gran % (Auto) 0.300 Neut % (Auto) 59.0 Lymph % (Auto) 26.8 [place] % (Auto) 12.7 H Eos % (Auto) 1.1 Baso % (Auto) 0.1 Absolute Neuts (auto) 4.6 Absolute Lymphs (auto) 2.10 Total Counted Not Reportable Sodium Potassium Chloride Carbon Dioxide Anion Gap BUN Creatinine Estim Creat Clear Calc Est GFR (MDRD) Af Amer Est GFR (MDRD) Non-Af BUN/Creatinine Ratio Glucose Calcium Magnesium Total Bilirubin AST ALT Alkaline Phosphatase Troponin I 0.231 H B-Natriuretic Peptide 53.4 Total Protein Albumin Globulin Albumin/Globulin Ratio Triglycerides Cholesterol LDL Cholesterol VLDL Cholesterol HDL Cholesterol Renin Aldosterone TSH Cortisol 04/25/18 04/25/18 04/26/18 04:10 18:25 04:00 WBC RBC Hgb Hct MCV MCH MCHC RDW RDW Differential Plt Count MPV Immature Gran % (Auto) Neut % (Auto) Lymph % (Auto) [place] % (Auto) Eos % (Auto) Baso % (Auto) Absolute Neuts (auto) Absolute Lymphs (auto) Total Counted Sodium 141 139 Potassium 4.2 4.0 Chloride 106 104 Carbon Dioxide 26.0 25.0 Anion Gap 9 10 BUN 17 21 H Creatinine 0.92 1.23 Estim Creat Clear Calc 134.97 100.95 Est GFR (MDRD) Af Amer 119 85 Est GFR (MDRD) Non-Af 98 70 BUN/Creatinine Ratio 18.5 17.1 Glucose 99 100 Calcium 8.7 8.7 Magnesium 1.9 Total Bilirubin 0.90 AST 22 ALT 44 Alkaline Phosphatase 84 Troponin I B-Natriuretic Peptide Total Protein 7.1 Albumin 3.7 Globulin 3.4 Albumin/Globulin Ratio 1.1 Triglycerides 144 Cholesterol 274 H LDL Cholesterol 205 H VLDL Cholesterol 29 HDL Cholesterol 40 Renin Aldosterone TSH 1.97 Cortisol Pending 04/26/18 04:00 WBC RBC Hgb Hct MCV MCH MCHC RDW RDW Differential Plt Count MPV Immature Gran % (Auto) Neut % (Auto) Lymph % (Auto) [place] % (Auto) Eos % (Auto) Baso % (Auto) Absolute Neuts (auto) Absolute Lymphs (auto) Total Counted Sodium Potassium Chloride Carbon Dioxide Anion Gap BUN Creatinine Estim Creat Clear Calc Est GFR (MDRD) Af Amer Est GFR (MDRD) Non-Af BUN/Creatinine Ratio Glucose Calcium Magnesium Total Bilirubin AST ALT Alkaline Phosphatase Troponin I B-Natriuretic Peptide Total Protein Albumin Globulin Albumin/Globulin Ratio Triglycerides Cholesterol LDL Cholesterol VLDL Cholesterol HDL Cholesterol Renin Pending Aldosterone Pending TSH Cortisol Medical Necessity - Tobacco Use Smoking Status: Former smoker Tobacco Use: Cigarettes Assessment/Plan All Active Problems Hypertensive emergency (Acute) RECOMMENDATIONS: 1. Continue current blood pressure medications 2. Await results of renal Doppler study 3. Okay to leave the intensive care unit from my perspective 4. Outpatient polysomnogram IMPRESSIONS: 1. Hypertensive emergency secondary to hypertensive retinopathy Patient currently on Norvasc, Coreg, lisinopril, hydralazine and hydrochlorothiazide. Blood pressures are doing well in the 150s-170s. Patient does have a renal Doppler pending, but no formal interpretation is available at this time. Will discontinue nicardipine. Patient can leave the intensive care unit. Likely needs monitored in the hospital for an additional 24 hours to be sure the blood pressures are controlled. 2. Morbid obesity/elevated troponin Complicates care, management, recovery and prognosis. Clinical suspicion for elevated troponin secondary to perfusion mismatch. No LVH was noted on echocardiogram. Encourage weight loss. Patient would benefit from outpatient polysomnogram. Code Visit Inpatient E&M: 64296 Subs Hosp L2
--- NOTE | 2018-04-26 08:01 | PCM.PN.HOSP ---
Patient Problems: Active and Suspected Problems Hypertensive emergency (Acute) Subjective: The patient heart rate and blood pressure is controlled. Systolic blood pressure was between 150-170 last night. Currently 142/87. Heart rate 62/min. Vitals/I&O's: Vital Signs Temp Pulse Resp BP Pulse Ox 98.5 F 56 L 10 L 142/87 H 94 04/26/18 00:00 04/26/18 07:00 04/26/18 07:00 04/26/18 07:00 04/26/18 07:00 Oxygen Delivery Method Room Air Weight: 347 lb 3.649 oz Body Mass Index (BMI) 42.4 Intake and Output for Last 24 Hours 04/24/18 04/25/18 04/26/18 23:59 23:59 23:59 Intake Total 4064 / 4064 2069 / 2069 60 / 60 Output Total 3050 / 3050 3100 / 3100 450 / 450 Balance 1014 / 1014 -1031 / -1031 -390 / -390 General: Alert, Oriented x3, Cooperative HEENT: Atraumatic, PERRLA, EOMI, Normocephalic Neck: Supple, No JVD, Negative Carotid Bruits Lungs: Clear to auscultation, No rhonchi, No wheeze, Diminished Cardiovascular: Regular rate, Regular Rhythm, Normal S1, Normal S2, No murmurs, - - Sustained apical impulse. Abdomen: Bowel Sounds Present, Soft, Non Tender, Non-Distended Extremities: Capillary Refill Less than 3 Seconds, Edema Skin: No rashes, No breakdown Musculoskeletal: No Tenderness to Palpation of Joints or Extremities Neurological: Cranial nerves II-XII grossly intact Psych/Mental Status: Normal Affect, Appropriate Laboratory Results 04/25/18 18:25: Cortisol Pending 04/26/18 04:00: Sodium 139, Potassium 4.0, Chloride 104, Carbon Dioxide 25.0, Anion Gap 10, BUN 21 H, Creatinine 1.23, Estim Creat Clear Calc 100.95, Est GFR (MDRD) Af Amer 85, Est GFR (MDRD) Non-Af 70, BUN/Creatinine Ratio 17.1, Glucose 100, Calcium 8.7, Magnesium 1.9, Total Bilirubin 0.90, AST 22, ALT 44, Alkaline Phosphatase 84, Total Protein 7.1, Albumin 3.7, Globulin 3.4, Albumin/Globulin Ratio 1.1, TSH 1.97 04/26/18 04:00: Renin Pending, Aldosterone Pending Current Medications Acetaminophen (Tylenol) 1,000 mg PO Q8H PRN PRN PRN Reason: PAIN Last Admin: 04/25/18 23:54 Dose: 1,000 mg Amlodipine Besylate (Norvasc) 10 mg PO DAILY [facility] Atorvastatin Calcium (Lipitor) 80 mg PO QHS [facility] Last Admin: 04/25/18 21:01 Dose: 80 mg Bisacodyl (Dulcolax) 10 mg RECTAL DAILY PRN PRN PRN Reason: Constipation Carvedilol (Coreg) 25 mg PO BID [facility] Last Admin: 04/25/18 21:02 Dose: 25 mg Docusate Sodium (Colace) 200 mg PO BID PRN PRN PRN Reason: Constipation Enoxaparin Sodium (Lovenox) 40 mg SC DAILY@1000 [facility] Last Admin: 04/25/18 09:32 Dose: 40 mg Hydralazine HCl (Apresoline) 50 mg PO TID [facility] Last Admin: 04/26/18 05:02 Dose: 50 mg Hydrochlorothiazide (Hctz) 25 mg PO DAILY [facility] Last Admin: 04/25/18 07:52 Dose: 25 mg Sodium Chloride () 250 mls @ 15 mls/hr IV .[id number] PRN PRN Reason: SALINE FLUSH Ketorolac Tromethamine (Toradol) 15 mg IV Q6H PRN PRN PRN Reason: HEADACHE Stop: 04/29/18 14:01 Last Admin: 04/26/18 03:17 Dose: 15 mg Lisinopril (Zestril) 20 mg PO DAILY [facility] Magnesium Hydroxide (Milk Of Magnesia) 30 ml PO DAILY PRN PRN Reason: Constipation Morphine Sulfate () 2 - 4 mg IV Q3H PRN PRN PRN Reason: Severe Pain (pain scale 6-10) Morphine Sulfate () 2 - 4 mg IV Q3H PRN PRN PRN Reason: Severe Pain (pain scale 6-10) Ondansetron HCl (Zofran) 4 mg IV Q6H PRN PRN PRN Reason: NAUSEA Oxycodone HCl (Oxyir) 10 mg PO Q4H PRN PRN PRN Reason: Moderate Pain (pain scale 4-5) Sodium Chloride () 5 - 30 ml IV UD PRN PRN Reason: SALINE FLUSH Last Admin: 04/26/18 03:17 Dose: 10 ml Medical Necessity - Tobacco Use Smoking Status: Former smoker Tobacco Use: Cigarettes Assessment/Plan All Active Problems Hypertensive emergency (Acute) This 38-year-old gentleman was admitted in ICU for hypertensive emergency. He had blurry vision and yesterday diagnosed hypertensive retinopathy by development representative yesterday and was sent to ER. Patient is diagnosed with hypotension and early 30s but not compliant with his antihypertensive medications. He also complained of temporal headache for last 4-5 days. I think he has obstructive sleep apnea and his complain of loud snoring. Currently he is on IV nicardipine and blood pressure is 177/75. 1. Hypertensive Emergency on chronic hypertension- BP 248/147 on admission. Received labetalol 10 mg IV ?1 in ER. Previously on lisinopril for HTN. labetolol Q4H PRN for SBP >180. Titrate medications to keep blood pressure systolic 150s-170s for next 84 hours. Patient is on oral antihypertensive medications including HCTZ, lisinopril, Coreg, hydralazine and amlodipine. Repeat EKG shows normal sinus rhythm with T inversion in lead I, aVL, V5, V6 suggestive of LVH with repolarization abnormality. Dr. Virgen also suggested 24 hours urinary metanephrine and catecholamine test. Serum TSH normal. Cortisol and renal aldosterone activity pending. Renal artery ultrasound also ordered to look for secondary hypertension. 2. Elevated troponin-suspect demand ischemia secondary #1. Troponins are elevated 0.173, 0.165 and 0.231 suggestive of increased left ventricular stress from hypertensive emergency. Discussed with Dr. Virgen earlier and recommended no further need for complaints. 3. Hypertensive retinopathy-continue outpatient follow-up with ophthalmology. 4. Obesity- Encouraged diet and lifestyle modifications. Nutrition consult. DVT prophylaxis-SCDs, Lovenox The patient is being transferred to regular floor on telemetry. Transfer medication reconciliation done. Code Visit Inpatient E&M: 76220 Subs Hosp L3
[2018-04-26] MEDS: Acetaminophen 500 MG Tablet 1000 MG PO ×2 (08:27→16:41)
[2018-04-26] MEDS: Lisinopril 20 MG Tablet PO (08:35)
[2018-04-26] MEDS: amLODIPine 10 MG Tablet PO (08:35)
[2018-04-26] MEDS: hydroCHLOROthiazide 25 MG Tablet PO (08:35)
[2018-04-26] MEDS: Carvedilol 25 MG Tablet PO ×2 (08:37→21:12)
--- NOTE | 2018-04-26 11:00 | NURSING ---
report called to med-surg for transfer to room 209
[2018-04-26] MEDS: hydrALAZINE 25 MG Tablet PO (13:08)
[2018-04-26] MEDS: Atorvastatin Calcium 80 MG Tablet PO (21:12)
[2018-04-27] VITALS (12 sets, daily range): BP systolic 156–188; BP diastolic 80–113; PULSE 61–80; RESP 16–18; TEMP 36.8–37.2; O2SAT 97–99
[2018-04-27] MEDS: hydrALAZINE 50 MG Tablet PO ×3 (05:48→20:24)
--- NOTE | 2018-04-27 07:21 | PCM.PN.INT ---
Subjective: Patient transferred out of the intensive care unit yesterday. No acute issues were reported overnight. Patient reports resolution of headache. Patient did require 1 dose of labetalol overnight secondary to blood pressure 190. This was not associated with any neurologic changes. Objective: Renal Dopplers have come back as negative General: Alert, Oriented x3, Cooperative, No apparent distress, Well developed, Well nourished, - - Morbidly obese. Speaking in full sentences. HEENT: Atraumatic, PERRLA, EOMI, Normocephalic, - - No scleral icterus or injection noted. Oral: Moist Mucosa, No Gingival or Mucosal Lesions/ Ulcerations Neck: Supple, No JVD, No Nodes, Trachea Midline Lungs: Clear to auscultation, Normal air movement, No rhonchi, No wheeze, No rales, - - Symmetric expansion. No dullness to percussion. Cardiovascular: Regular rate, Regular Rhythm, Normal S1, Normal S2, No murmurs, No rub noted, No Gallop Abdomen: Bowel Sounds Present, Soft, Non Tender, Non-Distended, Obese Extremities: No clubbing, No cyanosis, No edema, Capillary Refill Less than 3 Seconds Skin: No rashes, No breakdown Musculoskeletal: No Tenderness to Palpation of Joints or Extremities, No Muscle Wasting Lymphatic: No Cervical, Supraclavicular, or Inguinal Adenopathy Neurological: Cranial nerves II-XII grossly intact, Neuro grossly intact, Motor Exam 5/5 strength throughout Psych/Mental Status: Alert and oriented to time, place, person, mood and affect Vital Signs Temp Pulse Resp BP Pulse Ox 36.8 C 73 16 156/101 H 97 04/27/18 05:46 04/27/18 05:48 04/27/18 05:46 04/27/18 05:46 04/27/18 05:46 Oxygen Delivery Method Room Air Weight: 157.5 kg Body Mass Index (BMI) 42.4 Intake and Output for Last 24 Hours 04/25/18 04/26/18 04/27/18 23:59 23:59 23:59 Intake Total 9 / 2069 460 / 460 240 / 240 Output Total 3100 / 3100 850 / 850 Balance -1031 / -1031 -390 / -390 240 / 240 Labs (Last 48 Hours) 04/25/18 04/26/18 04/26/18 18:25 04:00 04:00 Sodium 139 Potassium 4.0 Chloride 104 Carbon Dioxide 25.0 Anion Gap 10 BUN 21 H Creatinine 1.23 Estim Creat Clear Calc 100.95 Est GFR (MDRD) Af Amer 85 Est GFR (MDRD) Non-Af 70 BUN/Creatinine Ratio 17.1 Glucose 100 Calcium 8.7 Magnesium 1.9 Total Bilirubin 0.90 AST 22 ALT 44 Alkaline Phosphatase 84 Total Protein 7.1 Albumin 3.7 Globulin 3.4 Albumin/Globulin Ratio 1.1 Renin Pending Aldosterone Pending TSH 1.97 Cortisol 6.60 Ur VMA 24 hr Ur VMA Concentration Urine Epinephrine Ur Epinephrine 24 Hr Urine Norepinephrine U Norepinephrine 24 Hr Urine Metanephrine U Metanephrines 24 Hr U Normetanephrine U Normetanephrine 24h Urine Dopamine Ur Dopamine 24 Hr 04/26/18 09:30 Sodium Potassium Chloride Carbon Dioxide Anion Gap BUN Creatinine Estim Creat Clear Calc Est GFR (MDRD) Af Amer Est GFR (MDRD) Non-Af BUN/Creatinine Ratio Glucose Calcium Magnesium Total Bilirubin AST ALT Alkaline Phosphatase Total Protein Albumin Globulin Albumin/Globulin Ratio Renin Aldosterone TSH Cortisol Ur VMA 24 hr Cancelled Ur VMA Concentration Cancelled Urine Epinephrine Cancelled Ur Epinephrine 24 Hr Cancelled Urine Norepinephrine Cancelled U Norepinephrine 24 Hr Cancelled Urine Metanephrine Pending U Metanephrines 24 Hr Pending U Normetanephrine Pending U Normetanephrine 24h Pending Urine Dopamine Cancelled Ur Dopamine 24 Hr Cancelled Clinical Impression(s) from Imaging Studies Chest X-Ray 04/23/18 16:19 IMPRESSION: No acute thoracic pathology. Electronically Signed: Alexis Nunes at 16:59 EDT Tel , Service support , Brain CT 04/23/18 17:33 IMPRESSION: Empty sella deformity is observed of uncertain clinical significance although may be associated with pseudotumor cerebri. Clinical correlation recommended. No evidence for obstructive hydrocephalus mass or acute bleed. MRI may be useful for further assessment if clinically warranted Electronically Signed: Zhou Khoury MD at 18:07 EDT , Service support , Medical Necessity - Tobacco Use Smoking Status: Former smoker Tobacco Use: Cigarettes Assessment/Plan All Active Problems Hypertensive emergency (Acute) RECOMMENDATIONS: 1. Continue current blood pressure medications 2. Await results of metanephrines 3. Outpatient polysomnogram 4. Hemodynamically stable on room air, will sign off from a critical care perspective 5. Consider obtain BMP prior to discharge for electrolyte and renal function baseline on current medications. IMPRESSIONS: 1. Hypertensive emergency secondary to hypertensive retinopathy Patient currently on Norvasc, Coreg, lisinopril, hydralazine and hydrochlorothiazide. Blood pressures are doing well in the 150s-170s. Patient appears to be tolerating current regimen well. Only one dose of labetalol required over the last 24 hours. Otherwise, hemodynamically stable on room air. Will sign off from a critical care perspective. Patient does have a secondary hypertension workup underway. 2. Morbid obesity/elevated troponin Complicates care, management, recovery and prognosis. Clinical suspicion for elevated troponin secondary to perfusion mismatch. No LVH was noted on echocardiogram. Encourage weight loss. Patient would benefit from outpatient polysomnogram. Code Visit Inpatient E&M: 39248 Subs Hosp L2
[2018-04-27] MEDS: amLODIPine 10 MG Tablet PO (10:09)
[2018-04-27] MEDS: Lisinopril 20 MG Tablet PO (10:09)
[2018-04-27] MEDS: hydroCHLOROthiazide 25 MG Tablet PO (10:09)
[2018-04-27] MEDS: Carvedilol 25 MG Tablet PO ×2 (10:10→20:24)
[2018-04-27] MEDS: 0.9% NaCl Peripheral Flush Adult/Peds IV (10:36)
--- NOTE | 2018-04-27 14:00 | PCM.PN.HOSP ---
Patient Problems: Active and Suspected Problems Hypertensive emergency (Acute) Subjective: Blood pressure is still gets intermittently high, last evening and morning today, systolic in the range of 180s-190s; even though patient is on 4 oral antihypertensive medications Vitals/I&O's: Vital Signs Temp Pulse Resp BP Pulse Ox 98.6 F 71 16 179/85 H 98 04/27/18 10:04 04/27/18 11:47 04/27/18 10:04 04/27/18 11:47 04/27/18 10:04 Oxygen Delivery Method Room Air Weight: 347 lb 3.649 oz Body Mass Index (BMI) 42.4 Intake and Output for Last 24 Hours 04/25/18 04/26/18 04/27/18 23:59 23:59 23:59 Intake Total 2069 / 2069 460 / 460 240 / 240 Output Total 3100 / 3100 850 / 850 Balance -1031 / -1031 -390 / -390 240 / 240 General: Alert, Oriented x3, Cooperative HEENT: Atraumatic, PERRLA, EOMI, Normocephalic Neck: Supple, No JVD, Negative Carotid Bruits Lungs: Clear to auscultation, Diminished Cardiovascular: Regular rate, Normal S1, Normal S2, No murmurs Abdomen: Bowel Sounds Present, Soft, Non Tender, Non-Distended Extremities: Capillary Refill Less than 3 Seconds, Edema Skin: No rashes, No breakdown Musculoskeletal: No Tenderness to Palpation of Joints or Extremities Neurological: Cranial nerves II-XII grossly intact, Neuro grossly intact Psych/Mental Status: Normal Affect, Appropriate Laboratory Results 04/27/18 10:45: Ur VMA 24 hr Pending, Ur VMA Concentration Pending, Urine Epinephrine Pending, Ur Epinephrine 24 Hr Pending, Urine Norepinephrine Pending, U Norepinephrine 24 Hr Pending, Urine Dopamine Pending, Ur Dopamine 24 Hr Pending Current Medications Acetaminophen (Tylenol) 1,000 mg PO Q8H PRN PRN PRN Reason: PAIN Last Admin: 04/26/18 16:41 Dose: 1,000 mg Amlodipine Besylate (Norvasc) 10 mg PO DAILY [facility] Last Admin: 04/27/18 10:09 Dose: 10 mg Atorvastatin Calcium (Lipitor) 80 mg PO QHS [facility] Last Admin: 04/26/18 21:12 Dose: 80 mg Bisacodyl (Dulcolax) 10 mg RECTAL DAILY PRN PRN PRN Reason: Constipation Carvedilol (Coreg) 25 mg PO BID [facility] Last Admin: 04/27/18 10:10 Dose: 25 mg Docusate Sodium (Colace) 200 mg PO BID PRN PRN PRN Reason: Constipation Enoxaparin Sodium (Lovenox) 40 mg SC DAILY@1000 [facility] Last Admin: 04/27/18 10:09 Dose: Not Given Hydralazine HCl (Apresoline) 50 mg PO TID [facility] Last Admin: 04/27/18 05:48 Dose: 50 mg Hydrochlorothiazide (Hctz) 25 mg PO DAILY [facility] Last Admin: 04/27/18 10:09 Dose: 25 mg Sodium Chloride () 250 mls @ 15 mls/hr IV .[id number] PRN PRN Reason: SALINE FLUSH Ketorolac Tromethamine (Toradol) 15 mg IV Q6H PRN PRN PRN Reason: HEADACHE Stop: 04/29/18 14:01 Last Admin: 04/26/18 17:57 Dose: 15 mg Labetalol HCl (Trandate) 20 mg IV Q4H PRN PRN PRN Reason: SBP GREATER THAN 180 Last Admin: 04/27/18 10:37 Dose: 20 mg Lisinopril (Zestril) 20 mg PO DAILY [facility] Last Admin: 04/27/18 10:09 Dose: 20 mg Magnesium Hydroxide (Milk Of Magnesia) 30 ml PO DAILY PRN PRN Reason: Constipation Minoxidil (Loniten) 5 mg PO DAILY [facility] Morphine Sulfate () 2 - 4 mg IV Q3H PRN PRN PRN Reason: Severe Pain (pain scale 6-10) Morphine Sulfate () 2 - 4 mg IV Q3H PRN PRN PRN Reason: Severe Pain (pain scale 6-10) Ondansetron HCl (Zofran) 4 mg IV Q6H PRN PRN PRN Reason: NAUSEA Oxycodone HCl (Oxyir) 10 mg PO Q4H PRN PRN PRN Reason: Moderate Pain (pain scale 4-5) Sodium Chloride () 5 - 30 ml IV UD PRN PRN Reason: SALINE FLUSH Last Admin: 04/27/18 10:36 Dose: 10 ml Medical Necessity - Tobacco Use Smoking Status: Former smoker Tobacco Use: Cigarettes Assessment/Plan All Active Problems Hypertensive emergency (Acute) This 38-year-old gentleman was admitted in ICU for hypertensive emergency. He had blurry vision and yesterday diagnosed hypertensive retinopathy by pre billing specialist yesterday and was sent to ER. Patient is diagnosed with hypotension and early 30s but not compliant with his antihypertensive medications. He also complained of temporal headache for last 4-5 days. I think he has obstructive sleep apnea and his complain of loud snoring. Currently he is on IV nicardipine and blood pressure is 177/75. 1. Hypertensive Emergency on chronic hypertension- BP 248/147 on admission. Received labetalol 10 mg IV ?1 in ER. Previously on lisinopril for HTN. labetolol Q4H PRN for SBP >180. Titrate medications to keep blood pressure systolic 150s-170s for next 84 hours. Patient is on oral antihypertensive medications including HCTZ, lisinopril, Coreg, hydralazine and amlodipine. Lisinopril is changed to Cozaar. As the patient is to spikes pressure twice in 180s range in 24 hours., Minoxidil 5 mg daily added. Repeat EKG shows normal sinus rhythm with T inversion in lead I, aVL, V5, V6 suggestive of LVH with repolarization abnormality. Dr. Virgen also suggested 24 hours urinary metanephrine and catecholamine test. Serum TSH normal. Serum cortisol is normal. Renal aldosterone activity pending. Renal artery ultrasound does not show stenosis or increased resistance to flow. Urinary metanephrine pending. 2. Elevated troponin-suspect demand ischemia secondary #1. Troponins are elevated 0.173, 0.165 and 0.231 suggestive of increased left ventricular stress from hypertensive emergency. Discussed with Dr. Virgen earlier and recommended no further need for complaints. 3. Hypertensive retinopathy-continue outpatient follow-up with ophthalmology. 4. Obesity- Encouraged diet and lifestyle modifications. Nutrition consult. DVT prophylaxis-SCDs, Lovenox Laboratory Results 04/27/18 10:45: Ur VMA 24 hr Pending, Ur VMA Concentration Pending, Urine Epinephrine Pending, Ur Epinephrine 24 Hr Pending, Urine Norepinephrine Pending, U Norepinephrine 24 Hr Pending, Urine Dopamine Pending, Ur Dopamine 24 Hr Pending Active Medications Acetaminophen (Tylenol) 1,000 mg PO Q8H PRN PRN PRN Reason: PAIN Last Admin: 04/26/18 16:41 Dose: 1,000 mg Amlodipine Besylate (Norvasc) 10 mg PO DAILY [facility] Last Admin: 04/27/18 10:09 Dose: 10 mg Atorvastatin Calcium (Lipitor) 80 mg PO QHS [facility] Last Admin: 04/26/18 21:12 Dose: 80 mg Bisacodyl (Dulcolax) 10 mg RECTAL DAILY PRN PRN PRN Reason: Constipation Carvedilol (Coreg) 25 mg PO BID [facility] Last Admin: 04/27/18 10:10 Dose: 25 mg Docusate Sodium (Colace) 200 mg PO BID PRN PRN PRN Reason: Constipation Enoxaparin Sodium (Lovenox) 40 mg SC DAILY@1000 [facility] Last Admin: 04/27/18 10:09 Dose: Not Given Hydralazine HCl (Apresoline) 50 mg PO TID [facility] Last Admin: 04/27/18 05:48 Dose: 50 mg Hydrochlorothiazide (Hctz) 25 mg PO DAILY [facility] Last Admin: 04/27/18 10:09 Dose: 25 mg Sodium Chloride () 250 mls @ 15 mls/hr IV .[id number] PRN PRN Reason: SALINE FLUSH Ketorolac Tromethamine (Toradol) 15 mg IV Q6H PRN PRN PRN Reason: HEADACHE Stop: 04/29/18 14:01 Last Admin: 04/26/18 17:57 Dose: 15 mg Labetalol HCl (Trandate) 20 mg IV Q4H PRN PRN PRN Reason: SBP GREATER THAN 180 Last Admin: 04/27/18 10:37 Dose: 20 mg Lisinopril (Zestril) 20 mg PO DAILY [facility] Last Admin: 04/27/18 10:09 Dose: 20 mg Magnesium Hydroxide (Milk Of Magnesia) 30 ml PO DAILY PRN PRN Reason: Constipation Minoxidil (Loniten) 5 mg PO DAILY [facility] Morphine Sulfate () 2 - 4 mg IV Q3H PRN PRN PRN Reason: Severe Pain (pain scale 6-10) Morphine Sulfate () 2 - 4 mg IV Q3H PRN PRN PRN Reason: Severe Pain (pain scale 6-10) Ondansetron HCl (Zofran) 4 mg IV Q6H PRN PRN PRN Reason: NAUSEA Oxycodone HCl (Oxyir) 10 mg PO Q4H PRN PRN PRN Reason: Moderate Pain (pain scale 4-5) Sodium Chloride () 5 - 30 ml IV UD PRN PRN Reason: SALINE FLUSH Last Admin: 04/27/18 10:36 Dose: 10 ml Code Visit Inpatient E&M: [id number] Subs Hosp L3
[2018-04-27] MEDS: Minoxidil 2.5 MG Tablet 5 MG PO (15:00)
[2018-04-27] MEDS: Losartan Potassium 50 MG Tablet PO (18:03)
[2018-04-27] MEDS: Atorvastatin Calcium 80 MG Tablet PO (20:24)
[2018-04-28] VITALS (10 sets, daily range): BP systolic 136–190; BP diastolic 76–113; PULSE 64–82; RESP 16–18; TEMP 36.7–37; O2SAT 99–100
[2018-04-28] MEDS: Acetaminophen 500 MG Tablet 1000 MG PO (02:58)
[2018-04-28] MEDS: hydrALAZINE 50 MG Tablet PO (05:12)
[2018-04-28] MEDS: Ketorolac 15 MG/ML Vial IV (05:15)
[2018-04-28] MEDS: 0.9% NaCl Peripheral Flush Adult/Peds IV ×2 (05:15→05:24)
[2018-04-28] MEDS: hydroCHLOROthiazide 25 MG Tablet PO (10:15)
[2018-04-28] MEDS: Minoxidil 2.5 MG Tablet 5 MG PO (10:16)
[2018-04-28] MEDS: amLODIPine 10 MG Tablet PO (10:16)
[2018-04-28] MEDS: Losartan Potassium 100 MG Tablet PO (10:17)
[2018-04-28] MEDS: Enoxaparin 40 MG/0.4 ML Syringe SC (10:17)
[2018-04-28] MEDS: Carvedilol 25 MG Tablet PO ×2 (10:17→20:44)
--- NOTE | 2018-04-28 13:31 | PCM.PN.HOSP ---
Patient Problems: Active and Suspected Problems Hypertensive emergency (Acute) Subjective: His blood pressure still challenging to control, even on 5 antihypertensive medications. Although the profile has been better but is still spikes a blood pressure shooting up to 190/113 in the morning today, 117/103 last evening about 2 times in 24 hours. Vitals/I&O's: Vital Signs Temp Pulse Resp BP Pulse Ox 98.3 F 74 18 136/91 H 99 04/28/18 11:00 04/28/18 11:00 04/28/18 11:00 04/28/18 12:38 04/28/18 11:00 Oxygen Delivery Method Room Air Weight: 347 lb 3.649 oz Body Mass Index (BMI) 42.4 Intake and Output for Last 24 Hours 04/26/18 04/27/18 04/28/18 23:59 23:59 23:59 Intake Total 460 / 460 740 / 740 1800 / 1800 Output Total 850 / 850 Balance -390 / -390 740 / 740 1800 / 1800 General: Alert, Oriented x3, Cooperative HEENT: Atraumatic, PERRLA, EOMI, Normocephalic Neck: Supple, No JVD, Negative Carotid Bruits Lungs: Clear to auscultation, No rhonchi, No wheeze, Diminished Cardiovascular: Regular rate, Normal S1, No murmurs Abdomen: Bowel Sounds Present, Soft, Non Tender Extremities: No edema, Capillary Refill Less than 3 Seconds Skin: No rashes, No breakdown Musculoskeletal: No Tenderness to Palpation of Joints or Extremities Neurological: Cranial nerves II-XII grossly intact Psych/Mental Status: Normal Affect, Appropriate Current Medications Acetaminophen (Tylenol) 1,000 mg PO Q8H PRN PRN PRN Reason: PAIN Last Admin: 04/28/18 02:58 Dose: 1,000 mg Amlodipine Besylate (Norvasc) 10 mg PO DAILY [facility] Last Admin: 04/28/18 10:16 Dose: 10 mg Atorvastatin Calcium (Lipitor) 80 mg PO QHS [facility] Last Admin: 04/27/18 20:24 Dose: 80 mg Bisacodyl (Dulcolax) 10 mg RECTAL DAILY PRN PRN PRN Reason: Constipation Carvedilol (Coreg) 25 mg PO BID [facility] Last Admin: 04/28/18 10:17 Dose: 25 mg Docusate Sodium (Colace) 200 mg PO BID PRN PRN PRN Reason: Constipation Enoxaparin Sodium (Lovenox) 40 mg SC DAILY@1000 [facility] Last Admin: 04/28/18 10:17 Dose: 40 mg Hydralazine HCl (Apresoline) 100 mg PO TID [facility] Hydrochlorothiazide (Hctz) 25 mg PO DAILY [facility] Last Admin: 04/28/18 10:15 Dose: 25 mg Sodium Chloride () 250 mls @ 15 mls/hr IV .[id number] PRN PRN Reason: SALINE FLUSH Ketorolac Tromethamine (Toradol) 15 mg IV Q6H PRN PRN PRN Reason: HEADACHE Stop: 04/29/18 14:01 Last Admin: 04/28/18 05:15 Dose: 15 mg Losartan Potassium (Cozaar) 100 mg PO DAILY [facility] Last Admin: 04/28/18 10:17 Dose: 100 mg Magnesium Hydroxide (Milk Of Magnesia) 30 ml PO DAILY PRN PRN Reason: Constipation Minoxidil (Loniten) 5 mg PO DAILY [facility] Last Admin: 04/28/18 10:16 Dose: 5 mg Morphine Sulfate () 2 - 4 mg IV Q3H PRN PRN PRN Reason: Severe Pain (pain scale 6-10) Morphine Sulfate () 2 - 4 mg IV Q3H PRN PRN PRN Reason: Severe Pain (pain scale 6-10) Ondansetron HCl (Zofran) 4 mg IV Q6H PRN PRN PRN Reason: NAUSEA Oxycodone HCl (Oxyir) 10 mg PO Q4H PRN PRN PRN Reason: Moderate Pain (pain scale 4-5) Sodium Chloride () 5 - 30 ml IV UD PRN PRN Reason: SALINE FLUSH Last Admin: 04/28/18 05:24 Dose: 10 ml Medical Necessity - Tobacco Use Smoking Status: Former smoker Tobacco Use: Cigarettes Assessment/Plan All Active Problems Hypertensive emergency (Acute) This 38-year-old gentleman was admitted in ICU for hypertensive emergency. He had blurry vision and yesterday diagnosed hypertensive retinopathy by doctor osteopathic yesterday and was sent to ER. Patient is diagnosed with hypotension and early 30s but not compliant with his antihypertensive medications. He also complained of temporal headache for last 4-5 days. I think he has obstructive sleep apnea and his complain of loud snoring. Currently he is on IV nicardipine and blood pressure is 177/75. 1. Hypertensive Emergency on chronic hypertension- BP 248/147 on admission. Received labetalol 10 mg IV ?1 in ER. Previously on lisinopril for HTN. labetolol Q4H PRN for SBP >180. Titrate medications to keep blood pressure systolic 150s-170s for next 24 hours. Patient is on oral antihypertensive medications including HCTZ, lisinopril, Coreg, hydralazine and amlodipine. Lisinopril is changed to Cozaar. Minoxidil was added yesterday. Repeat EKG shows normal sinus rhythm with T inversion in lead I, aVL, V5, V6 suggestive of LVH with repolarization abnormality. Dr. Virgen also suggested 24 hours urinary metanephrine and catecholamine test. Serum TSH normal. Serum cortisol is normal. Renal aldosterone activity pending. Renal artery ultrasound does not show stenosis or increased resistance to flow. Urinary metanephrine pending. 2. Elevated troponin-suspect demand ischemia secondary #1. Troponins are elevated 0.173, 0.165 and 0.231 suggestive of increased left ventricular stress from hypertensive emergency. Discussed with Dr. Virgen earlier and recommended no further need for complaints. 3. Hypertensive retinopathy-continue outpatient follow-up with ophthalmology. 4. Obesity- Encouraged diet and lifestyle modifications. Nutrition consult. DVT prophylaxis-SCDs, Lovenox Plan: If patient's systolic blood pressure stays between 150-170 mmHg next 24 hours without a spikes of systolic 180-190 mmHg, patient can be discharged on the above medications. Laboratory Results 04/27/18 10:45: Ur VMA 24 hr Pending, Ur VMA Concentration Pending, Urine Epinephrine Pending, Ur Epinephrine 24 Hr Pending, Urine Norepinephrine Pending, U Norepinephrine 24 Hr Pending, Urine Dopamine Pending, Ur Dopamine 24 Hr Pending Active Medications Acetaminophen (Tylenol) 1,000 mg PO Q8H PRN PRN PRN Reason: PAIN Last Admin: 04/28/18 02:58 Dose: 1,000 mg Amlodipine Besylate (Norvasc) 10 mg PO DAILY [facility] Last Admin: 04/28/18 10:16 Dose: 10 mg Atorvastatin Calcium (Lipitor) 80 mg PO QHS [facility] Last Admin: 04/27/18 20:24 Dose: 80 mg Bisacodyl (Dulcolax) 10 mg RECTAL DAILY PRN PRN PRN Reason: Constipation Carvedilol (Coreg) 25 mg PO BID [facility] Last Admin: 04/28/18 10:17 Dose: 25 mg Docusate Sodium (Colace) 200 mg PO BID PRN PRN PRN Reason: Constipation Enoxaparin Sodium (Lovenox) 40 mg SC DAILY@1000 [facility] Last Admin: 04/28/18 10:17 Dose: 40 mg Hydralazine HCl (Apresoline) 100 mg PO TID [facility] Hydrochlorothiazide (Hctz) 25 mg PO DAILY [facility] Last Admin: 04/28/18 10:15 Dose: 25 mg Sodium Chloride () 250 mls @ 15 mls/hr IV .[id number] PRN PRN Reason: SALINE FLUSH Ketorolac Tromethamine (Toradol) 15 mg IV Q6H PRN PRN PRN Reason: HEADACHE Stop: 04/29/18 14:01 Last Admin: 04/28/18 05:15 Dose: 15 mg Losartan Potassium (Cozaar) 100 mg PO DAILY [facility] Last Admin: 04/28/18 10:17 Dose: 100 mg Magnesium Hydroxide (Milk Of Magnesia) 30 ml PO DAILY PRN PRN Reason: Constipation Minoxidil (Loniten) 5 mg PO DAILY [facility] Last Admin: 04/28/18 10:16 Dose: 5 mg Morphine Sulfate () 2 - 4 mg IV Q3H PRN PRN PRN Reason: Severe Pain (pain scale 6-10) Morphine Sulfate () 2 - 4 mg IV Q3H PRN PRN PRN Reason: Severe Pain (pain scale 6-10) Ondansetron HCl (Zofran) 4 mg IV Q6H PRN PRN PRN Reason: NAUSEA Oxycodone HCl (Oxyir) 10 mg PO Q4H PRN PRN PRN Reason: Moderate Pain (pain scale 4-5) Sodium Chloride () 5 - 30 ml IV UD PRN PRN Reason: SALINE FLUSH Last Admin: 04/28/18 05:24 Dose: 10 ml Code Visit Inpatient E&M: 30056 [facility] L2
[2018-04-28] MEDS: hydrALAZINE 50 MG Tablet 100 MG PO ×2 (14:47→20:44)
[2018-04-28] MEDS: Atorvastatin Calcium 80 MG Tablet PO (20:44)
[2018-04-29 02:46] VITALS: BP 138/90; PULSE 65; RESP 16; TEMP 36.9; O2SAT 97
[2018-04-29 05:36] VITALS: BP 144/94; PULSE 62; RESP 16; TEMP 36.7; O2SAT 99
[2018-04-29] MEDS: hydrALAZINE 50 MG Tablet 100 MG PO (05:36)
[2018-04-29 08:13] VITALS: BP 151/86; PULSE 67; RESP 18; TEMP 36.8; O2SAT 96
[2018-04-29] MEDS: Minoxidil 2.5 MG Tablet 5 MG PO (08:15)
[2018-04-29] MEDS: amLODIPine 10 MG Tablet PO (08:16)
[2018-04-29] MEDS: Carvedilol 25 MG Tablet PO (08:16)
[2018-04-29] MEDS: hydroCHLOROthiazide 25 MG Tablet PO (08:16)
--- NOTE | 2018-04-29 08:27 | PCM.DC ---
- Discharge Diagnoses Current Active Problems: Current Active and Chronic Problems Hypertension (Chronic) Hypertensive emergency (Acute) Hypertensive retinopathy (Chronic) You will use the following diet at home:: Cardiac Your food should be the consistency of: Regular Your liquids should be the consistency of: Regular/Thin Discharge Activity: Return to Normal Activity Call your doctor if you observe: Shortness of breath, Dizziness, Fainting spells, Swelling in the ankles, Chest pain, Increased palpitations (irregular heartbeat) Allergies/Adverse Reactions: Allergies Penicillins [PCN] Adverse Reaction (Verified 04/23/18 16:04) Abd cramps/diarrhea Medications to take at Discharge Aspirin/Acetaminophen/Caffeine [Excedrin Migraine Caplet] 2 tablet PO PRN PRN 04/23/18 Amlodipine [Norvasc] 10 mg PO DAILY #30 tab 04/27/18 Atorvastatin Calcium [Lipitor] 80 mg PO QHS #30 tab 04/27/18 Carvedilol [Coreg (Beta Boby)] 25 mg PO BID #60 tab 04/27/18 Hydrochlorothiazide [Hctz] 25 mg PO DAILY #30 tab 04/27/18 Losartan Potassium [Cozaar] 100 mg PO DAILY #30 tab 04/27/18 hydrALAZINE [Apresoline] 50 mg PO TID #100 tab 04/27/18 Losartan Potassium [Cozaar] 100 mg PO DAILY #30 tab 04/29/18 The following prescriptions were given: Amlodipine [Norvasc] 10 mg PO DAILY #30 tab Atorvastatin Calcium [Lipitor] 80 mg PO QHS #30 tab Hydrochlorothiazide [Hctz] 25 mg PO DAILY #30 tab Losartan Potassium [Cozaar] 100 mg PO DAILY #30 tab Losartan Potassium [Cozaar] 100 mg PO DAILY #30 tab Carvedilol [Coreg (Beta Boby)] 25 mg PO BID #60 tab hydrALAZINE [Apresoline] 50 mg PO TID #100 tab Primary Care Physician: Zhou Minor MD [STAFF PHYSICIAN] - Please follow up with your Primary Care Physician in: in 3-5 days Test Results: Test results from this visit will be discussed in further detail at your follow-up appointment, if applicable.
--- NOTE | 2018-04-29 08:29 | PCM.DC.SUM ---
Discharge Date and Diagnosis - Problem List Patient Problems: Active and Suspected Problems Hypertensive emergency (Acute) Date of Admission: 04/23/18 Date of Discharge: 04/29/18 - Primary Discharge Diagnosis Active and Suspected Problems Hypertensive emergency (Acute) - Secondary Discharge Diagnosis Chronic Problems Hypertension (Chronic) Hypertensive retinopathy (Chronic) Hospital Course and Treatment Imaging Results: Ct Brain: IMPRESSION: Empty sella deformity is observed of uncertain clinical significance although may be associated with pseudotumor cerebri. Clinical correlation recommended. No evidence for obstructive hydrocephalus mass or acute bleed. MRI may be useful for further assessment if clinically warranted Renal US: Interpretation Summary Dimensions of the intra-abdominal aorta appear normal, without evidence of aneurysmal dilatation. Renal artery velocities are bilaterally normal. Acceleration times are normal bilaterally. There is no evidence of hemodynamically significant renal artery stenosis on either side. Renovascular resistance appears to be bilaterally normal . The right cortical dimension is increased. The left cortical dimension is increased. Kidneys appear normal in size bilaterally Consults: ICU Operations: None Procedures: 2-D Echocardiogram - Interpretation Summary Moderate concentric left ventricular hypertrophy. The estimated ejection fraction is 75 %. Normal diastology for age. Unable to estimate RV systolic pressure due to inadequate jet, pulmonary artery pressure probably normal. The study was technically difficult. There is no comparison study available. Contrast injection was performed. Summary of Care Provided: HPI: The patient is a 38 year old M who presents to the emergency room with elevated blood pressure and blurred vision. Patient states he has had intermittent headaches for a few weeks. The last few days he has noticed his vision has been blurry bilaterally. He visited ophthalmology today who diagnosed him with hypertensive retinopathy and his blood pressure was noted to be significantly elevated during appointment. He was referred to ER. Patient states he was placed on lisinopril in his early 30s. He states he took himself off of lisinopril years ago and has not been on blood pressure regimen since. He has not had routine PCP follow-up the last few years and has not had blood pressure checked. He denies chest pain, shortness of breath, lower extremity swelling. He denies loss of vision. Denies syncope/near syncope. He denies other chronic medical history. Vital Signs - 24 hr Temp Pulse Resp BP BP BP Pulse Ox 04/29/18 08:13 98.2 F 67 18 151/86 H 96 04/29/18 05:36 98.0 F 62 16 144/94 H 99 04/29/18 02:46 98.4 F 65 16 138/90 H 97 04/28/18 22:00 98.6 F 78 16 158/102 H 100 04/28/18 20:44 78 158/102 H 04/28/18 16:11 98.0 F 82 18 149/90 H 99 04/28/18 14:47 74 04/28/18 12:38 164/100 H 136/91 H 04/28/18 11:00 98.3 F 74 18 142/83 H 99 04/28/18 10:29 190/113 H General: Alert, Oriented x3, Cooperative, No apparent distress HEENT: Atraumatic, EOMI, Normocephalic Oral: Moist Mucosa Neck: Supple, No JVD Lungs: Clear to auscultation, Normal air movement, No rhonchi, No wheeze, No rales Cardiovascular: Regular rate, Regular Rhythm, Normal S1, Normal S2, No murmurs Abdomen: Soft, Non Tender, Non-Distended, No Hepato-splenomegaly Extremities: No edema, Capillary Refill Less than 3 Seconds Skin: No rashes, No breakdown Psych/Mental Status: Normal Affect, Appropriate Hospital Course: 1. Hypertensive Emergency - He presented with hypertensive emergency with an elevated troponin and an SBP >250 from his ophtalmologist who found hypertensive retinopathy. He was admitted initially to the ICU and started on a nifedipine drip. He was also started on oral therapy as well including norvasc, coreg, HCTZ, losartan, and hydralazine. He had a renal US done which was normal and a echo which showed concentric LV wall thickening and a normal EF. His blood pressure has decreased to less than SBP 160 and he denies headaches, or blurry vision. He was discharged on Norvasc, Coreg, HCTZ, losartan and hydralazine. He will need close PCP follow-up with a BMP later this week. Discharge Activity: Return to Normal Activity Call your doctor if you observe: Shortness of breath, Dizziness, Fainting spells, Swelling in the ankles, Chest pain, Increased palpitations (irregular heartbeat) Home Medications: Medications to take at Discharge Aspirin/Acetaminophen/Caffeine [Excedrin Migraine Caplet] 2 tablet PO PRN PRN 04/23/18 Amlodipine [Norvasc] 10 mg PO DAILY #30 tab 04/27/18 Atorvastatin Calcium [Lipitor] 80 mg PO QHS #30 tab 04/27/18 Carvedilol [Coreg (Beta Boby)] 25 mg PO BID #60 tab 04/27/18 Hydrochlorothiazide [Hctz] 25 mg PO DAILY #30 tab 04/27/18 Losartan Potassium [Cozaar] 100 mg PO DAILY #30 tab 04/27/18 hydrALAZINE [Apresoline] 50 mg PO TID #100 tab 04/27/18 Losartan Potassium [Cozaar] 100 mg PO DAILY #30 tab 04/29/18 Following Prescrptions Were Given to Patient: Amlodipine [Norvasc] 10 mg PO DAILY #30 tab Atorvastatin Calcium [Lipitor] 80 mg PO QHS #30 tab Hydrochlorothiazide [Hctz] 25 mg PO DAILY #30 tab Losartan Potassium [Cozaar] 100 mg PO DAILY #30 tab Losartan Potassium [Cozaar] 100 mg PO DAILY #30 tab Carvedilol [Coreg (Beta Boby)] 25 mg PO BID #60 tab hydrALAZINE [Apresoline] 50 mg PO TID #100 tab Other Amb Orders: Basic Metabolic Profile (BMP) Location: Laboratory Primary Care Physician: Zhou Minor MD [STAFF PHYSICIAN] - Please follow up with your Primary Care Physician in: in 3-5 days Disposition: Home Minutes spent on discharge:: 35 Patient Condition:: Good Medical Necessity - Tobacco Use Smoking Status: Former smoker Tobacco Use: Cigarettes Meaningful Use Info Meaningful Use Diagnoses (Choose all that apply): None applicable Code Visit Inpatient E&M: 62124 Disch Hosp
[2018-04-29] MEDS: Losartan Potassium 100 MG Tablet PO (09:21)
[2018-04-30 20:07] LABS: Metanephrine, Ur 71 ug/L (Undefined); Normetanephrines, Ur 405 ug/L (Undefined)
[2018-05-01 11:08] LABS: Dopamine, UR 106 ug/L (Undefined); Epinephrine, 24Ur 12 ug/24 hr (0-20); Epinephrine, Ur 4 ug/L (Undefined); Norepinephrine, 24Ur 129 ug/24 hr (0-135); Norepinephrine, Ur 43 ug/L (Undefined); VMA, UR 3.3 mg/L (Undefined)
[2018-05-01 11:22] LABS: Dopamine, 24Ur 318 ug/24 hr (0-510); VMA, 24UR 9.9 mg/24 hr (0.0-7.5)
[2018-05-01 11:33] LABS: Metanephrines, 24Ur 215 ug/24 hr (45-290); Normetanephrines, 24Ur 1225 ug/24 hr (82-500)
[2018-05-02 08:14] LABS: Renin, Plasma 1.669 ng/mL/hr (0.167-5.380)
== END 2018-04-29 10:10 | disposition home or self-care (01) | DRG 305 ==
LOC: ED 17:47 → ICU 19:07 → MS2 04-26 11:06
PROVIDERS: Admitting Provider Family Medicine; Emergency Provider Emergency Medicine; Visit Provider Internal Medicine
DX: I16.1 Hypertensive emergency (principal); Z68.41 Body mass index [BMI] 40.0-44.9, adult; I24.8 Other forms of acute ischemic heart disease; Z87.891 Personal history of nicotine dependence; H35.039 Hypertensive retinopathy, unspecified eye; I10 Essential (primary) hypertension; E66.01 Morbid (severe) obesity due to excess calories
CPT/HCPCS: 70450; 71045; 80048; 80053; 80061; 82088; 82384; 82533; 83735; 83835; 83880; 84244; 84443; 84484; 84585; 85025; 93005; 93306; 93975; 99283; J7050; Q9957; A4216; C8929; J2405

== ENCOUNTER → 2023-11-09 | Outpatient (CLI) | payer OTHER, SELFPAY | END | disposition home or self-care (01) | PROVIDERS: PCP Student in an Organized Health Care Education/Training Program; Referring Provider Student in an Organized Health Care Education/Training Program; Visit Provider Student in an Organized Health Care Education/Training Program | DX: G47.10 Hypersomnia, unspecified (principal); E66.01 Morbid (severe) obesity due to excess calories; Z68.42 Body mass index [BMI] 45.0-49.9, adult; G47.30 Sleep apnea, unspecified; R53.83 Other fatigue; R06.00 Dyspnea, unspecified; R06.83 Snoring | CPT/HCPCS: 95811 ==